=== PATIENT | male | born 1980 | race African-American/Black ===

== ENCOUNTER 2019-03-04 02:40 | Inpatient (IN) | payer MEDICAID ==
[~2019-03-04] VITALS: Ht 188 cm; Wt 86.4 kg
[2019-03-04] MEDS ORDERED: MULTIVIT INFUSN,ADULT 4,VIT K 10 ML, THIAMINE INJ 100 MG, FOLIC ACID INJ 1 MG in IV NOR... IV ONE (03:00)
[2019-03-04] MEDS ORDERED: MULTIVIT INFUSN,ADULT 4,VIT K 10 ML, THIAMINE INJ 100 MG, FOLIC ACID INJ 1 MG in IV NOR... IV SCH (03:15)
[2019-03-04 03:18] LABS: BASO % 1 % (0-3); EOS # 0.2 x10^3/uL (0.0-0.7); EOS % 5 % (0-3); HEMOGLOBIN 14.6 g/dL (13.0-17.5); LYMPH # 1.2 x10^3/uL (1.0-4.8); LYMPH % 23 % (24-48); MEAN CORPUSCULAR HEMOGLOBIN 26 pg (25-35); MEAN CORPUSCULAR HGB CONC 33 g/dL (31-37); MEAN CORPUSCULAR VOLUME 79 fL (79-100); MONO # 0.5 x10^3/uL (0.0-1.1); MONO % 9 % (0-9); NEUT # 3.2 x10^3/uL (1.8-7.7); NEUT % 63 % (31-73); PLATELET COUNT 193 x10^3/uL (140-400); RED BLOOD COUNT 5.73 x10^6/uL (4.30-5.70); RED CELL DISTRIBUTION WIDTH 15.4 % (11.5-14.5); WHITE BLOOD COUNT 5.1 x10^3/uL (4.0-11.0)
--- NOTE | 2019-03-04 03:23 | PHYS DOC ---
Past Medical History Past Medical History: Diabetes-Type I (ROSALBA LORA DO) Past Medical History Limited due to acute intoxication (ROSALBA LORA DO) Past Surgical History Limited due to acute intoxication (ROSALBA LORA DO) Smoking: Cigarettes Alcohol Use: Heavy Drug Use: Cocaine, Methamphetamine (2012), Phencyclidine (ROSALBA LORA DO) Social History Limited due to acute intoxication (ROSALBA LORA DO) Adult General Chief Complaint Chief Complaint: ALTERED MENTAL STATUS HPI HPI Mr. Meyer is a 39yo AAM w/ PMH significant for DM and polysubstance abuse presents w/ AMS. Patient states he was discharged from [facility] this evening. Reports he is homeless. Reports use of alcohol and PCP after discharge. Currently feeling confused and dizzy. Poor historian due to AMS likely secondary to self-admission of recent substance use. History of present illness limited due to acute intoxication. (ROSALBA LORA DO) Review of Systems Review of Systems Constitutional: Reports confusion and dizziness. Denies fever or chills Neurologic: Reports mild VILLAREAL. Denies focal weakness or sensory changes Review of systems limited due to acute intoxication. (ROSALBA LORA DO) Current Medications Current Medications Current Medications Medications (Trade) Dose Ordered Sig/Michael Start Time Stop Time Status Last Admin Dose Admin Magnesium Sulfate 50 ml @ 25 mls/hr 1X ONCE 03/04/19 04:45 03/04/19 06:44 DC 03/04/19 05:10 25 MLS/HR Multivitamins 10 ml/Thiamine HCl 100 mg/Folic Acid 1 mg/Sodium Chloride 1,011.2 ml @ 1,000.088 mls/hr 1X ONCE 03/04/19 03:00 03/04/19 05:06 DC 03/04/19 04:58 1,000.088 MLS/HR Sodium Chloride 1,000 ml @ 1,000 mls/hr 1X ONCE 03/04/19 09:15 03/04/19 10:14 03/04/19 09:40 1,000 MLS/HR (YUVAL SILVERMAN MD) Allergies Allergies Allergies Coded Allergies Type Severity Reaction Last Updated Verified No Known Drug Allergies 03/04/19 No (YUVAL SILVERMAN MD) Physical Exam Physical Exam Constitutional: withdrawn, no acute distress, non-toxic appearance HENT: Normocephalic, atraumatic, oropharynx moist Eyes: PERRL, EOMI, conjunctiva normal, no discharge Neck: Normal range of motion, no tenderness, supple, no cervical or supraclavicular LAD Cardiovascular: Heart rate normal, regular rhythm w/o gallops, rubs, or murmurs. Lungs & Thorax: Bilateral breath sounds clear to auscultation throughout, no wheezing Abdomen: Soft, no tenderness, non-distended Skin: Warm, dry, no erythema, no rash Extremities: No tenderness, no edema Neurologic: Alert and oriented X 3, normal motor function, normal sensory function, no focal deficits noted Psychologic: Affect flat, judgement limited, mood depressed, reports suicidal and homicidal ideation (ROSALBA LORA DO) Current Patient Data Vital Signs Vital Signs Date Time Temp Pulse Resp B/P (MAP) Pulse Ox O2 Delivery O2 Flow Rate FiO2 03/04/19 07:30 84 16 100 03/04/19 02:40 98.6 124/81 (95) Room Air 98.6 (YUVAL SILVERMAN MD) Lab Values Laboratory Tests Test 03/04/19 02:48 03/04/19 02:50 03/04/19 04:00 White Blood Count 5.1 x10^3/uL (4.0-11.0) Red Blood Count 5.73 x10^6/uL (4.30-5.70) H Hemoglobin 14.6 g/dL (13.0-17.5) Hematocrit 45.0 % (39.0-53.0) Mean Corpuscular Volume 79 fL (79-100) Mean Corpuscular Hemoglobin 26 pg (25-35) Mean Corpuscular Hemoglobin Concent 33 g/dL (31-37) Red Cell Distribution Width 15.4 % (11.5-14.5) H Platelet Count 193 x10^3/uL (140-400) Neutrophils (%) (Auto) 63 % (31-73) Lymphocytes (%) (Auto) 23 % (24-48) L Monocytes (%) (Auto) 9 % (0-9) Eosinophils (%) (Auto) 5 % (0-3) H Basophils (%) (Auto) 1 % (0-3) Neutrophils # (Auto) 3.2 x10^3/uL (1.8-7.7) Lymphocytes # (Auto) 1.2 x10^3/uL (1.0-4.8) Monocytes # (Auto) 0.5 x10^3/uL (0.0-1.1) Eosinophils # (Auto) 0.2 x10^3/uL (0.0-0.7) Basophils # (Auto) 0.0 x10^3/uL (0.0-0.2) Lactic Acid Level 1.4 mmol/L (0.4-2.0) Urine Collection Type Unknown Urine Color Yellow Urine Clarity Clear Urine pH 6.0 Urine Specific [place] >=1.030 Urine Protein Negative mg/dL (NEG-TRACE) Urine Glucose (UA) >=1000 mg/dL (NEG) Urine Ketones (Stick) 40 mg/dL (NEG) Urine Blood Negative (NEG) Urine Nitrite Negative (NEG) Urine Bilirubin Negative (NEG) Urine Urobilinogen Dipstick 1.0 mg/dL (0.2 mg/dL) Urine Leukocyte Esterase Negative (NEG) Urine RBC 0 /HPF (0-2) Urine WBC 1-4 /HPF (0-4) Urine Squamous Epithelial Cells Occ /LPF Urine Bacteria 0 /HPF (0-FEW) Urine Mucus Slight /LPF Urine Opiates Screen Neg (NEG) Urine Methadone Screen Neg (NEG) Urine Barbiturates Neg (NEG) Urine Phencyclidine Screen Pos (NEG) Urine Amphetamine/Methamphetamine Neg (NEG) Urine Benzodiazepines Screen Neg (NEG) Urine Cocaine Screen Neg (NEG) Urine Cannabinoids Screen Neg (NEG) Urine Ethyl Alcohol Neg (NEG) Sodium Level 138 mmol/L (136-145) Potassium Level 5.0 mmol/L (3.5-5.1) Chloride Level 104 mmol/L (98-107) Carbon Dioxide Level 26 mmol/L (21-32) Anion Gap 8 (6-14) Blood Urea Nitrogen 13 mg/dL (8-26) Creatinine 0.9 mg/dL (0.7-1.3) Estimated GFR (Cockcroft-Gault) 114.9 BUN/Creatinine Ratio 14 (6-20) Glucose Level 278 mg/dL (70-99) H Calcium Level 8.7 mg/dL (8.5-10.1) Magnesium Level 1.5 mg/dL (1.8-2.4) L Total Bilirubin 0.5 mg/dL (0.2-1.0) Aspartate Amino Transferase (AST) 29 U/L (15-37) Alanine Aminotransferase (ALT) 22 U/L (16-63) Alkaline Phosphatase 88 U/L (46-116) Total Protein 6.9 g/dL (6.4-8.2) Albumin 3.0 g/dL (3.4-5.0) L Albumin/Globulin Ratio 0.8 (1.0-1.7) L Lipase 83 U/L (73-393) Salicylates Level 3.9 mg/dL (2.8-20.0) Salicylate Last Dose Date Salicylate Last Dose Time Acetaminophen Level < 2 mcg/ml (10-30) L Acetaminophen Last Dose Date Acetaminophen Last Dose Time Ethyl Alcohol Level < 10 mg/dL (0-10) Laboratory Tests 03/04/19 02:48 Laboratory Tests 03/04/19 04:00 (YUVAL SILVERMAN MD) Lab Values Laboratory Tests Test 03/04/19 02:48 03/04/19 02:50 03/04/19 04:00 White Blood Count 5.1 x10^3/uL (4.0-11.0) Red Blood Count 5.73 x10^6/uL (4.30-5.70) H Hemoglobin 14.6 g/dL (13.0-17.5) Hematocrit 45.0 % (39.0-53.0) Mean Corpuscular Volume 79 fL (79-100) Mean Corpuscular Hemoglobin 26 pg (25-35) Mean Corpuscular Hemoglobin Concent 33 g/dL (31-37) Red Cell Distribution Width 15.4 % (11.5-14.5) H Platelet Count 193 x10^3/uL (140-400) Neutrophils (%) (Auto) 63 % (31-73) Lymphocytes (%) (Auto) 23 % (24-48) L Monocytes (%) (Auto) 9 % (0-9) Eosinophils (%) (Auto) 5 % (0-3) H Basophils (%) (Auto) 1 % (0-3) Neutrophils # (Auto) 3.2 x10^3/uL (1.8-7.7) Lymphocytes # (Auto) 1.2 x10^3/uL (1.0-4.8) Monocytes # (Auto) 0.5 x10^3/uL (0.0-1.1) Eosinophils # (Auto) 0.2 x10^3/uL (0.0-0.7) Basophils # (Auto) 0.0 x10^3/uL (0.0-0.2) Lactic Acid Level 1.4 mmol/L (0.4-2.0) Urine Collection Type Unknown Urine Color Yellow Urine Clarity Clear Urine pH 6.0 Urine Specific [place] >=1.030 Urine Protein Negative mg/dL (NEG-TRACE) Urine Glucose (UA) >=1000 mg/dL (NEG) Urine Ketones (Stick) 40 mg/dL (NEG) Urine Blood Negative (NEG) Urine Nitrite Negative (NEG) Urine Bilirubin Negative (NEG) Urine Urobilinogen Dipstick 1.0 mg/dL (0.2 mg/dL) Urine Leukocyte Esterase Negative (NEG) Urine RBC 0 /HPF (0-2) Urine WBC 1-4 /HPF (0-4) Urine Squamous Epithelial Cells Occ /LPF Urine Bacteria 0 /HPF (0-FEW) Urine Mucus Slight /LPF Urine Opiates Screen Neg (NEG) Urine Methadone Screen Neg (NEG) Urine Barbiturates Neg (NEG) Urine Phencyclidine Screen Pos (NEG) Urine Amphetamine/Methamphetamine Neg (NEG) Urine Benzodiazepines Screen Neg (NEG) Urine Cocaine Screen Neg (NEG) Urine Cannabinoids Screen Neg (NEG) Urine Ethyl Alcohol Neg (NEG) Sodium Level 138 mmol/L (136-145) Potassium Level 5.0 mmol/L (3.5-5.1) Chloride Level 104 mmol/L (98-107) Carbon Dioxide Level 26 mmol/L (21-32) Anion Gap 8 (6-14) Blood Urea Nitrogen 13 mg/dL (8-26) Creatinine 0.9 mg/dL (0.7-1.3) Estimated GFR (Cockcroft-Gault) 114.9 BUN/Creatinine Ratio 14 (6-20) Glucose Level 278 mg/dL (70-99) H Calcium Level 8.7 mg/dL (8.5-10.1) Magnesium Level 1.5 mg/dL (1.8-2.4) L Total Bilirubin 0.5 mg/dL (0.2-1.0) Aspartate Amino Transferase (AST) 29 U/L (15-37) Alanine Aminotransferase (ALT) 22 U/L (16-63) Alkaline Phosphatase 88 U/L (46-116) Total Protein 6.9 g/dL (6.4-8.2) Albumin 3.0 g/dL (3.4-5.0) L Albumin/Globulin Ratio 0.8 (1.0-1.7) L Lipase 83 U/L (73-393) Ethyl Alcohol Level < 10 mg/dL (0-10) Laboratory Tests 03/04/19 02:48 Laboratory Tests 03/04/19 04:00 (ROSALBA LORA DO) EKG EKG @0325 NSR at 71bpm, NO ST elevation, QRS 82ms, QT/QTc 398/433ms (ROSALBA LORA DO) Radiology/Procedures Radiology/Procedures [] (ROSALBA LORA DO) Course & Med Decision Making Course & Med Decision Making Pertinent Lab studies reviewed. (See chart for details) Patient presented w/ AMS with report of drinking ETOH and using PCP. Patient appears acutely intoxicated. Hx of recent visit to [facility]. Patient poor historian. Labs obtained and posted to chart. ETOH negative. PCP positive. Magnesium slightly decreased. Magnesium replacement provided. EKG stable. Banana bag provided. IVF hydration also provided. 0430- Patient still obtunded. Await clinical sobriety for PAT consultation. 0600- PAT consult placed. Sign out given to Dr. Silverman for further evaluation and final disposition. Discussed current findings and plan with patient, who ac knowledges understanding and agreement. (ROSALBA LORA DO) Course & Med Decision Making 1005: Patient was a sleeping but was able to walk to the bathroom and eat wit hout problem. Patient was evaluated by Pat team staff and mentioned he has ideal to kill his without mentioning about his plan. Patient give inappropriate comments to the female staff internal investigator and then refused to talk to the male Pat team internal investigator. Patient was in emergency room more than 7 hours and refused to talk to me and other staff Dr. Cheney auto inspection specialist hospitalist was informed and willing to admit patient for observation. (YUVAL SILVERMAN MD) Dragon Disclaimer Dragon Disclaimer This electronic medical record was generated, in whole or in part, using a voice recognition dictation system. (ROSALBA LORA DO) Departure Departure Impression: Primary Impression: PCP abuse Additional Impression: Hypomagnesemia Disposition: ADMITTED INPATIENT (at 1002) Admitting Physician: [facility] (Dr. Cheney accepted admission at 1001) (YUVAL SILVERMAN MD) Problem Qualifiers ROSALBA LORA DO Mar 04, 2019 03:23 YUVAL SILVERMAN MD Mar 04, 2019 10:12
[2019-03-04 03:27] LABS: BILIRUBIN,URINE NEGATIVE (NEG); CLARITY,URINE CLEAR; COLOR,URINE YELLOW; NITRITE,URINE NEGATIVE (NEG); PROTEIN,URINE NEGATIVE (NEG-TRACE)
[2019-03-04 03:33] LABS: BACTERIA,URINE 0 /HPF (0-FEW); BARBITURATES NEG (NEG); BENZODIAZEPINES NEG (NEG); CANNABINOIDS NEG (NEG); COCAINE NEG (NEG); METHADONE NEG (NEG); OPIATES NEG (NEG); PHENCYCLIDINE POS (NEG); RBC,URINE 0 /HPF (0-2); SQUAMOUS EPITHELIAL CELL,UR OCC /LPF
[2019-03-04 03:36] LABS: AMPHETAMINE/METHAMPHETAMINE NEG (NEG)
[2019-03-04 04:22] LABS: CALCIUM 8.7 mg/dL (8.5-10.1); CREATININE 0.9 mg/dL (0.7-1.3); GFR 114.9
[2019-03-04 04:27] LABS: ALBUMIN/GLOBULIN RATIO 0.8 (1.0-1.7); MAGNESIUM 1.5 mg/dL (1.8-2.4); TOTAL BILIRUBIN 0.5 mg/dL (0.2-1.0); TOTAL PROTEIN 6.9 g/dL (6.4-8.2)
[2019-03-04] MEDS ORDERED: IV NORMAL SALINE 1000ML BAG 1,000 ML IV ONE ×2 (04:45→09:15)
[2019-03-04] MEDS ORDERED: MAGNESIUM SULFATE 2GM 50 ML IV ONE (04:45)
[2019-03-04 04:49] LABS: ACETAMIN < 2 mcg/ml (10-30); SALIC 3.9 mg/dL (2.8-20.0)
--- NOTE | 2019-03-04 06:22 | EKG ---
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
--- NOTE | 2019-03-04 11:30 | PDOC1 ---
History and Physical Date of Admission Date of Admission DATE: 03/04/19 TIME: 11:29 Identification/Chief Complaint Chief Complaint 39yo AAM w/ PMH significant for DM and polysubstance abuse presents w/ AMS. Patient states he was discharged from [facility] 03/03. Reports he is homeless. Reports use of alcohol and PCP after discharge. Currently feeling confused and dizzy. C/O STRESS WITH GIRLFRIEND, CAUSING MORE DRUG USE Poor historian due to AMS likely secondary to self-admission of recent substance use. HAS POSSIBLE SPIDER BITE RIGHT LOWER LEG, MILD INFLAMMATION Past Medical History Past Medical History Past Medical History: Diabetes-Type I Smoking: Cigarettes Alcohol Use: Heavy Drug Use: Cocaine, Methamphetamine (2012), Phencyclidine fhx htn Family History Family History: Hypertension Social History Smoke: <1 pack per day ALCOHOL: heavy Drugs: Other (pcp) Current Problem List Problem List Problems Medical Problems: (1) Alcohol abuse Status: Acute (2) Hypomagnesemia Status: Acute (3) PCP abuse Status: Acute Current Medications Current Medications Current Medications Multivitamins 10 ml/Thiamine HCl 100 mg/Folic Acid 1 mg/Sodium Chloride 1,011.2 ml @ 1,000 mls/ hr Q1H IV ; Start 03/04/19 at 03:15; Status Cancel Sodium Chloride 1,000 ml @ 1,000 mls/hr 1X ONCE IV Last administered on 03/04/19at 05:10; Start 03/04/19 at 04:45; Stop 03/04/19 at 05:44; Status DC Magnesium Sulfate 50 ml @ 25 mls/hr 1X ONCE IV Last administered on 03/04/19at 05:10; Start 03/04/19 at 04:45; Stop 03/04/19 at 06:44; Status DC Multivitamins 10 ml/Thiamine HCl 100 mg/Folic Acid 1 mg/Sodium Chloride 1,011.2 ml @ 1,000.088 mls/hr 1X ONCE IV Last administered on 03/04/19at 04:58; Start 03/04/19 at 03:00; Stop 03/04/19 at 05:06; Status DC Sodium Chloride 1,000 ml @ 1,000 mls/hr 1X ONCE IV Last administered on 03/04/19at 09:40; Start 03/04/19 at 09:15; Stop 8/9/19 at 10:14; Status DC Allergies Allergies: Coded Allergies: No Known Drug Allergies (Unverified , 03/04/19) ROS Review of System Review of Systems Review of Systems Constitutional: Reports confusion and dizziness. Denies fever or chills Neurologic: Reports mild VILLAREAL. Denies focal weakness or sensory changes Review of systems limited due to acute intoxication. General: YES: Fatigue PSYCHOLOGICAL ROS: YES: Irritablity Eyes: No Blurry vision, No Decreased vision, No Double vision, No Dry eyes, No Excessive tearing, No Eye Pain, No Itchy Eyes, No Loss of vision, No Photophobia, No Scotomata, No Uses contacts, No Uses glasses, No Other HEENT: No: Heacaches, Visual Changes, Hearing change, Nasal congestion, Nasal discharge, Oral lesions, Sinus pain, Sore Throat, Epistaxis, Sneezing, Snoring, Tinnitus, Vertigo, Vocal changes, Other ALLERGY AND IMMUNOLOGY: No: Hives, Insect Bite Sensitivity, Itchy/Watery Eyes, Nasal Congestion, Post Nasal Drip, Seasonal Allergies, Other ENDOCRINE: No: Breast Changes, Galactorrhea, Hair Pattern Changes, Hot Flashes, Malaise/lethargy, Mood Swings, Palpitations, Polydipsia/polyuria, Skin Changes, Temperature Intolerance, Unexpected Weight Changes, Other Respiratory: No: Cough, Hemoptysis, Orthopnea, Pleuritic Pain, Shortness of breath, SOB with excertion, Sputum Changes, Stridor, Tachypnea, Wheezing, Other Cardiovascular: No Chest Pain, No Palpitations, No Orthopnea, No Paroxysmal Noc. Dyspnea, No Edema, No Lt Headedness, No Other Gastrointestinal: No Nausea, No Vomiting, No Abdominal Pain, No Diarrhea, No Constipation, No Melena, No Hematochezia, No Other Skin: Yes Skin Lesion Changes Physical Exam Physical Exam Physical Exam Physical Exam Constitutional: withdrawn, no acute distress, non-toxic appearance HENT: Normocephalic, atraumatic, oropharynx moist Eyes: PERRL, EOMI, conjunctiva normal, no discharge Neck: Normal range of motion, no tenderness, supple, no cervical or supraclavicular LAD Cardiovascular: Heart rate normal, regular rhythm w/o gallops, rubs, or murmurs. Lungs & Thorax: Bilateral breath sounds clear to auscultation throughout, no wheezing Abdomen: Soft, no tenderness, non-distended Skin: Warm, dry, no erythema, no rash Extremities: No tenderness, no edema Neurologic: Alert and oriented X 3, normal motor function, normal sensory function, no focal deficits noted Psychologic: Affect flat, judgement limited, mood depressed, reports suicidal and homicidal ideation General: Alert, Oriented X3, Cooperative HEENT: Atraumatic, PERRLA Lungs: Clear to auscultation Heart: RRR Abdomen: Normal bowel sounds, Soft Rectal Exam: not examined Extremities: No cyanosis Neuro: Normal speech, Cranial nerves 3-12 NL Psych/Mental Status: Other (MOOD FLAT) Vitals Vitals Vital Signs Date Time Temp Pulse Resp B/P (MAP) Pulse Ox O2 Delivery O2 Flow Rate FiO2 03/04/19 11:18 80 15 100 03/04/19 02:40 98.6 124/81 (95) Room Air 98.6 Labs Labs Laboratory Tests Test 03/04/19 02:48 03/04/19 02:50 03/04/19 04:00 White Blood Count 5.1 x10^3/uL (4.0-11.0) Red Blood Count 5.73 x10^6/uL (4.30-5.70) Hemoglobin 14.6 g/dL (13.0-17.5) Hematocrit 45.0 % (39.0-53.0) Mean Corpuscular Volume 79 fL (79-100) Mean Corpuscular Hemoglobin 26 pg (25-35) Mean Corpuscular Hemoglobin Concent 33 g/dL (31-37) Red Cell Distribution Width 15.4 % (11.5-14.5) Platelet Count 193 x10^3/uL (140-400) Neutrophils (%) (Auto) 63 % (31-73) Lymphocytes (%) (Auto) 23 % (24-48) Monocytes (%) (Auto) 9 % (0-9) Eosinophils (%) (Auto) 5 % (0-3) Basophils (%) (Auto) 1 % (0-3) Neutrophils # (Auto) 3.2 x10^3/uL (1.8-7.7) Lymphocytes # (Auto) 1.2 x10^3/uL (1.0-4.8) Monocytes # (Auto) 0.5 x10^3/uL (0.0-1.1) Eosinophils # (Auto) 0.2 x10^3/uL (0.0-0.7) Basophils # (Auto) 0.0 x10^3/uL (0.0-0.2) Lactic Acid Level 1.4 mmol/L (0.4-2.0) Urine Collection Type Unknown Urine Color Yellow Urine Clarity Clear Urine pH 6.0 Urine Specific [place] >=1.030 Urine Protein Negative mg/dL (NEG-TRACE) Urine Glucose (UA) >=1000 mg/dL (NEG) Urine Ketones (Stick) 40 mg/dL (NEG) Urine Blood Negative (NEG) Urine Nitrite Negative (NEG) Urine Bilirubin Negative (NEG) Urine Urobilinogen Dipstick 1.0 mg/dL (0.2 mg/dL) Urine Leukocyte Esterase Negative (NEG) Urine RBC 0 /HPF (0-2) Urine WBC 1-4 /HPF (0-4) Urine Squamous Epithelial Cells Occ /LPF Urine Bacteria 0 /HPF (0-FEW) Urine Mucus Slight /LPF Urine Opiates Screen Neg (NEG) Urine Methadone Screen Neg (NEG) Urine Barbiturates Neg (NEG) Urine Phencyclidine Screen Pos (NEG) Urine Amphetamine/Methamphetamine Neg (NEG) Urine Benzodiazepines Screen Neg (NEG) Urine Cocaine Screen Neg (NEG) Urine Cannabinoids Screen Neg (NEG) Urine Ethyl Alcohol Neg (NEG) Sodium Level 138 mmol/L (136-145) Potassium Level 5.0 mmol/L (3.5-5.1) Chloride Level 104 mmol/L (98-107) Carbon Dioxide Level 26 mmol/L (21-32) Anion Gap 8 (6-14) Blood Urea Nitrogen 13 mg/dL (8-26) Creatinine 0.9 mg/dL (0.7-1.3) Estimated GFR (Cockcroft-Gault) 114.9 BUN/Creatinine Ratio 14 (6-20) Glucose Level 278 mg/dL (70-99) Calcium Level 8.7 mg/dL (8.5-10.1) Magnesium Level 1.5 mg/dL (1.8-2.4) Total Bilirubin 0.5 mg/dL (0.2-1.0) Aspartate Amino Transf (AST/SGOT) 29 U/L (15-37) Alanine Aminotransferase (ALT/SGPT) 22 U/L (16-63) Alkaline Phosphatase 88 U/L (46-116) Total Protein 6.9 g/dL (6.4-8.2) Albumin 3.0 g/dL (3.4-5.0) Albumin/Globulin Ratio 0.8 (1.0-1.7) Lipase 83 U/L (73-393) Salicylates Level 3.9 mg/dL (2.8-20.0) Salicylate Last Dose Date Salicylate Last Dose Time Acetaminophen Level < 2 mcg/ml (10-30) Acetaminophen Last Dose Date Acetaminophen Last Dose Time Ethyl Alcohol Level < 10 mg/dL (0-10) Laboratory Tests Test 03/04/19 02:48 03/04/19 02:50 03/04/19 04:00 White Blood Count 5.1 x10^3/uL (4.0-11.0) Red Blood Count 5.73 x10^6/uL (4.30-5.70) Hemoglobin 14.6 g/dL (13.0-17.5) Hematocrit 45.0 % (39.0-53.0) Mean Corpuscular Volume 79 fL (79-100) Mean Corpuscular Hemoglobin 26 pg (25-35) Mean Corpuscular Hemoglobin Concent 33 g/dL (31-37) Red Cell Distribution Width 15.4 % (11.5-14.5) Platelet Count 193 x10^3/uL (140-400) Neutrophils (%) (Auto) 63 % (31-73) Lymphocytes (%) (Auto) 23 % (24-48) Monocytes (%) (Auto) 9 % (0-9) Eosinophils (%) (Auto) 5 % (0-3) Basophils (%) (Auto) 1 % (0-3) Neutrophils # (Auto) 3.2 x10^3/uL (1.8-7.7) Lymphocytes # (Auto) 1.2 x10^3/uL (1.0-4.8) Monocytes # (Auto) 0.5 x10^3/uL (0.0-1.1) Eosinophils # (Auto) 0.2 x10^3/uL (0.0-0.7) Basophils # (Auto) 0.0 x10^3/uL (0.0-0.2) Lactic Acid Level 1.4 mmol/L (0.4-2.0) Urine Collection Type Unknown Urine Color Yellow Urine Clarity Clear Urine pH 6.0 Urine Specific [place] >=1.030 Urine Protein Negative mg/dL (NEG-TRACE) Urine Glucose (UA) >=1000 mg/dL (NEG) Urine Ketones (Stick) 40 mg/dL (NEG) Urine Blood Negative (NEG) Urine Nitrite Negative (NEG) Urine Bilirubin Negative (NEG) Urine Urobilinogen Dipstick 1.0 mg/dL (0.2 mg/dL) Urine Leukocyte Esterase Negative (NEG) Urine RBC 0 /HPF (0-2) Urine WBC 1-4 /HPF (0-4) Urine Squamous Epithelial Cells Occ /LPF Urine Bacteria 0 /HPF (0-FEW) Urine Mucus Slight /LPF Urine Opiates Screen Neg (NEG) Urine Methadone Screen Neg (NEG) Urine Barbiturates Neg (NEG) Urine Phencyclidine Screen Pos (NEG) Urine Amphetamine/Methamphetamine Neg (NEG) Urine Benzodiazepines Screen Neg (NEG) Urine Cocaine Screen Neg (NEG) Urine Cannabinoids Screen Neg (NEG) Urine Ethyl Alcohol Neg (NEG) Sodium Level 138 mmol/L (136-145) Potassium Level 5.0 mmol/L (3.5-5.1) Chloride Level 104 mmol/L (98-107) Carbon Dioxide Level 26 mmol/L (21-32) Anion Gap 8 (6-14) Blood Urea Nitrogen 13 mg/dL (8-26) Creatinine 0.9 mg/dL (0.7-1.3) Estimated GFR (Cockcroft-Gault) 114.9 BUN/Creatinine Ratio 14 (6-20) Glucose Level 278 mg/dL (70-99) Calcium Level 8.7 mg/dL (8.5-10.1) Magnesium Level 1.5 mg/dL (1.8-2.4) Total Bilirubin 0.5 mg/dL (0.2-1.0) Aspartate Amino Transf (AST/SGOT) 29 U/L (15-37) Alanine Aminotransferase (ALT/SGPT) 22 U/L (16-63) Alkaline Phosphatase 88 U/L (46-116) Total Protein 6.9 g/dL (6.4-8.2) Albumin 3.0 g/dL (3.4-5.0) Albumin/Globulin Ratio 0.8 (1.0-1.7) Lipase 83 U/L (73-393) Salicylates Level 3.9 mg/dL (2.8-20.0) Salicylate Last Dose Date Salicylate Last Dose Time Acetaminophen Level < 2 mcg/ml (10-30) Acetaminophen Last Dose Date Acetaminophen Last Dose Time Ethyl Alcohol Level < 10 mg/dL (0-10) VTE Prophylaxis Ordered VTE Prophylaxis Devices: Contraindicated VTE Pharmacological Prophylaxi: Yes Assessment/Plan Assessment/Plan Impression: PCP abuse Hypomagnesemia obesity polysubstance abuse SUICIDE IDEATION, MAJOR DEPRESSION HOMELESS social issues ADMITTED PAT TEAM CONSULT SUICIDE PRECAUTIONS KEFLEX 500MG PO QID suicide precautions 77 MIN PT EXAM, CHART REVIEW, > 50% OF TIME SPENT WITH EXAM, CHART REVIEW, PT CARE COORDINATION BERRY ROA MD Mar 04, 2019 11:30
[2019-03-04 11:48] VITALS: BP 129/84
[2019-03-04] MEDS ORDERED: FLUO40CA9 PO (12:00)
[2019-03-04] MEDS ORDERED: ALBU2.5V8 IH (12:00)
[2019-03-04] MEDS ORDERED: LISI10TA2 PO (12:00)
[2019-03-04] MEDS ORDERED: OLAN20TA3 PO (12:00)
[2019-03-04] MEDS ORDERED: TRAZ150T49 PO (12:00)
[2019-03-04] MEDS ORDERED: METF10007 PO (12:00)
[2019-03-04] MEDS ORDERED: GLIP10TA13 PO (12:00)
[2019-03-04] MEDS ORDERED: ALBUTEROL SULFATE 2.5 MG/3 ML NEBU. NEB PRN (13:30)
--- NOTE | 2019-03-04 13:33 | HP ---
ADMIT DATE: 03/04/2019 CHIEF COMPLAINT: Suicidal ideation, homicidal ideation, PCP abuse. HISTORY OF PRESENT ILLNESS: The patient is a pleasant middle-aged male who has schizophrenia and diabetes. He apparently has been having some suicidal ideation. He told someone that he was going to hurt his as well. He apparently took some PCP within the past few days. He is also methamphetamine and cocaine in the past. I discussed the case with ER physician. We are going to admit the patient and consult the psychiatric assessment team. I just talked to Kieran who works for the psychiatric assessment team. He is going to try to get the patient place but it is going to take a couple of days. PAST MEDICAL HISTORY: Diabetes and schizophrenia. ALLERGIES: None. FAMILY HISTORY: Hypertension. SOCIAL HISTORY: He smokes socially, drinks socially. He takes PCP, methamphetamine and cocaine recreationally, states he did some PCP within the past day or two. MEDICATIONS: Reviewed, please refer to MRAD. REVIEW OF SYSTEMS: Unobtainable, the patient will not comply. He is confused. PHYSICAL EXAMINATION: VITALS: Within normal limits and are stable. GENERAL: No apparent distress. Alert and oriented. HEENT: Head is normocephalic, atraumatic, pupils were equally round and reactive to light and accommodation. NECK: Supple, no JVD, no thyromegaly was noted. LUNGS: Clear to auscultation in all lung reid without rhonchi or wheezing. HEART: RRR, S1, S2 present. Peripheral pulses intact, no obvious murmurs were noted. ABDOMEN: Soft, nontender. Positive bowel sounds no organomegaly, normal bowel sounds. EXTREMITIES: Without any cyanosis, clubbing, or edema. Pedal pulses intact, Homans sign is negative. NEUROLOGIC: Normal speech, normal tone. A & O x3, moves all extremities, no obvious focal deficits. PSYCHIATRIC: Normal affect, normal mood. Stable. SKIN: No ulcerations or rashes, good skin turgor, no jaundice. VASCULAR: Good capillary refill, neurovascular bundle appears to be intact. LABORATORY DATA: White count is 5. Drug screen positive for PCP. ASSESSMENT AND PLAN: Drug abuse, suicidal and homicidal ideation. The patient is being admitted. We will consult the psychiatric assessment team, home meds, 1:1 observation, cardiac monitoring. NICHOLE RAMEY DO DR: Michelle JOB#: [id number] / [id number]
[2019-03-04] MEDS ORDERED: IV DEXTROSE 5% 250 ML BAG. IV PRN (13:45)
[2019-03-04] MEDS ORDERED: DEXTROSE 50% 25 GM / 50ML DISP.SYRIN. IV PRN (13:45)
[2019-03-04 14:57] VITALS: BP 113/69
[2019-03-04] MEDS: FLUoxetine HCL 20 MG CAPSULE PO SCH (15:08)
[2019-03-04] MEDS: LISINOPRIL 10 MG TABLET PO SCH (15:08)
[2019-03-04] MEDS: glipiZIDE 5 MG TABLET PO SCH (17:47)
[2019-03-04] MEDS: CEPHALEXIN 250 MG CAPSULE. PO SCH ×2 (17:47→20:17)
[2019-03-04] MEDS: ENOXAPARIN 40 MG/0.4 ML SYRINGE. SQ SCH (17:48)
[2019-03-04] MEDS: INSULIN LISPRO 300 UNITS/3 ML INSULN.PEN. SQ SCH (17:53)
--- NOTE | 2019-03-04 18:33 | NUR ---
DR. ROA NOTIFIED OF BLOOD SUGAR [address] ROA INFORMED THAT THIS IS THE FIRST TIME TREATING THE BLOOD SUGAR WITH 5 UNITS OF INSULIN AND PT PO DM MEDICATIONS. DR. ROA DID NOT WANT TO ADD MORE TREATMENT AND TO RE-CHECK IN 1 HOUR.
[2019-03-04 19:00] VITALS: BP 155/96
[2019-03-04] MEDS: LACTOBACILLUS RHAMNOSUS GG 1 CAPSULE. PO SCH (20:17)
[2019-03-04] MEDS: traZODone 50 MG TABLET. PO SCH (20:17)
[2019-03-04] MEDS: OLANZapine 5 MG TABLET PO SCH (20:17)
[2019-03-04 22:52] VITALS: BP 132/73
[2019-03-05] MEDS: FAMOTIDINE 20 MG TABLET. PO SCH ×3 (01:00→20:17)
--- NOTE | 2019-03-05 01:29 | NUR ---
Patient continues to be inappropriate to female staff members during this time. Patient was laying in bed with his penis exposed and asked the TRAVEL OCCUPATIONAL THERAPIST sitting with him for her hand, when the TRAVEL OCCUPATIONAL THERAPIST asked why he stated "I want you to jerk me off". TRAVEL OCCUPATIONAL THERAPIST told the patient that it was inappropriate, and notified this RN. At this time the patient stood up for his bed and approached this RN, the patient then came closer and began to bend down towards this RN's face. This RN placed a hand on the patient's chest to stop the patient from advancing closer. This RN told the patient "please don't stand that close to me". The patient then stepped back and went back to bed and laid down. This RN called and spoke to the nursing supervisor coil winding and requested a male staff member to sit with the patient at this time. This RN will continue to monitor the patient's condition at this time.
[2019-03-05 03:21] VITALS: BP 128/76
[2019-03-05 07:53] VITALS: BP 98/70
[2019-03-05] MEDS: glipiZIDE 5 MG TABLET PO SCH ×2 (08:08→17:10)
[2019-03-05] MEDS: FLUoxetine HCL 20 MG CAPSULE PO SCH (08:08)
[2019-03-05] MEDS: CEPHALEXIN 250 MG CAPSULE. PO SCH ×4 (08:08→20:17)
[2019-03-05] MEDS: LACTOBACILLUS RHAMNOSUS GG 1 CAPSULE. PO SCH ×2 (08:08→20:17)
[2019-03-05] MEDS: INSULIN LISPRO 300 UNITS/3 ML INSULN.PEN. SQ SCH ×3 (08:15→17:13)
[2019-03-05] MEDS: LISINOPRIL 10 MG TABLET PO SCH (09:00)
--- NOTE | 2019-03-05 09:16 | PDOC ---
PROGRESS NOTES Chief Complaint Chief Complaint PCP abuse Hypomagnesemia DM2 obesity polysubstance abuse SUICIDE IDEATION, MAJOR DEPRESSION HOMELESS social issues History of Present Illness History of Present Illness 39yo AAM w/ PMH significant for DM2 and polysubstance abuse presents w/ AMS. Patient states he was discharged from [facility] 03/03. Positive for PCP this admit. Mag level 1.5. Blood glucose in the 300s. He has told staff he still wishes to kill himself and his ex-. He is not speaking with me today. Allows my physical examination, but he just goes to eat his lunch. No complaints out loud. Vitals Vitals Vital Signs Date Time Temp Pulse Resp B/P (MAP) Pulse Ox O2 Delivery O2 Flow Rate FiO2 03/05/19 07:53 98.0 60 18 98/70 (79) 99 Room Air 98.0 Physical Exam General: Alert, Oriented X3, Cooperative Abdomen: Normal bowel sounds, Soft Extremities: No cyanosis Labs LABS Laboratory Tests Test 03/04/19 11:36 03/04/19 17:43 03/04/19 19:14 Glucose (Fingerstick) 301 mg/dL (70-99) 444 mg/dL (70-99) 221 mg/dL (70-99) Assessment and Plan Assessmemt and Plan Problems Medical Problems: (1) Alcohol abuse Status: Acute (2) Hypomagnesemia Status: Acute (3) PCP abuse Status: Acute Comment Review of Relevant I have reviewed the following items becki (where applicable) has been applied. Labs Laboratory Tests Test 03/04/19 02:48 03/04/19 02:50 03/04/19 04:00 03/04/19 11:36 White Blood Count 5.1 x10^3/uL (4.0-11.0) Red Blood Count 5.73 x10^6/uL (4.30-5.70) Hemoglobin 14.6 g/dL (13.0-17.5) Hematocrit 45.0 % (39.0-53.0) Mean Corpuscular Volume 79 fL (79-100) Mean Corpuscular Hemoglobin 26 pg (25-35) Mean Corpuscular Hemoglobin Concent 33 g/dL (31-37) Red Cell Distribution Width 15.4 % (11.5-14.5) Platelet Count 193 x10^3/uL (140-400) Neutrophils (%) (Auto) 63 % (31-73) Lymphocytes (%) (Auto) 23 % (24-48) Monocytes (%) (Auto) 9 % (0-9) Eosinophils (%) (Auto) 5 % (0-3) Basophils (%) (Auto) 1 % (0-3) Neutrophils # (Auto) 3.2 x10^3/uL (1.8-7.7) Lymphocytes # (Auto) 1.2 x10^3/uL (1.0-4.8) Monocytes # (Auto) 0.5 x10^3/uL (0.0-1.1) Eosinophils # (Auto) 0.2 x10^3/uL (0.0-0.7) Basophils # (Auto) 0.0 x10^3/uL (0.0-0.2) Lactic Acid Level 1.4 mmol/L (0.4-2.0) Urine Collection Type Unknown Urine Color Yellow Urine Clarity Clear Urine pH 6.0 Urine Specific [place] >=1.030 Urine Protein Negative mg/dL (NEG-TRACE) Urine Glucose (UA) >=1000 mg/dL (NEG) Urine Ketones (Stick) 40 mg/dL (NEG) Urine Blood Negative (NEG) Urine Nitrite Negative (NEG) Urine Bilirubin Negative (NEG) Urine Urobilinogen Dipstick 1.0 mg/dL (0.2 mg/dL) Urine Leukocyte Esterase Negative (NEG) Urine RBC 0 /HPF (0-2) Urine WBC 1-4 /HPF (0-4) Urine Squamous Epithelial Cells Occ /LPF Urine Bacteria 0 /HPF (0-FEW) Urine Mucus Slight /LPF Urine Opiates Screen Neg (NEG) Urine Methadone Screen Neg (NEG) Urine Barbiturates Neg (NEG) Urine Phencyclidine Screen Pos (NEG) Urine Amphetamine/Methamphetamine Neg (NEG) Urine Benzodiazepines Screen Neg (NEG) Urine Cocaine Screen Neg (NEG) Urine Cannabinoids Screen Neg (NEG) Urine Ethyl Alcohol Neg (NEG) Sodium Level 138 mmol/L (136-145) Potassium Level 5.0 mmol/L (3.5-5.1) Chloride Level 104 mmol/L (98-107) Carbon Dioxide Level 26 mmol/L (21-32) Anion Gap 8 (6-14) Blood Urea Nitrogen 13 mg/dL (8-26) Creatinine 0.9 mg/dL (0.7-1.3) Estimated GFR (Cockcroft-Gault) 114.9 BUN/Creatinine Ratio 14 (6-20) Glucose Level 278 mg/dL (70-99) Calcium Level 8.7 mg/dL (8.5-10.1) Magnesium Level 1.5 mg/dL (1.8-2.4) Total Bilirubin 0.5 mg/dL (0.2-1.0) Aspartate Amino Transf (AST/SGOT) 29 U/L (15-37) Alanine Aminotransferase (ALT/SGPT) 22 U/L (16-63) Alkaline Phosphatase 88 U/L (46-116) Total Protein 6.9 g/dL (6.4-8.2) Albumin 3.0 g/dL (3.4-5.0) Albumin/Globulin Ratio 0.8 (1.0-1.7) Lipase 83 U/L (73-393) Salicylates Level 3.9 mg/dL (2.8-20.0) Salicylate Last Dose Date Salicylate Last Dose Time Acetaminophen Level < 2 mcg/ml (10-30) Acetaminophen Last Dose Date Acetaminophen Last Dose Time Ethyl Alcohol Level < 10 mg/dL (0-10) Glucose (Fingerstick) 301 mg/dL (70-99) Test 03/04/19 17:43 03/04/19 19:14 Glucose (Fingerstick) 444 mg/dL (70-99) 221 mg/dL (70-99) Laboratory Tests Test 03/04/19 11:36 03/04/19 17:43 03/04/19 19:14 Glucose (Fingerstick) 301 mg/dL (70-99) 444 mg/dL (70-99) 221 mg/dL (70-99) Medications Current Medications Multivitamins 10 ml/Thiamine HCl 100 mg/Folic Acid 1 mg/Sodium Chloride 1,011.2 ml @ 1,000 mls/ hr Q1H IV ; Start 03/04/19 at 03:15; Status Cancel Sodium Chloride 1,000 ml @ 1,000 mls/hr 1X ONCE IV Last administered on at 05:10; Start 03/04/19 at 04:45; Stop 03/04/19 at 05:44; Status DC Magnesium Sulfate 50 ml @ 25 mls/hr 1X ONCE IV Last administered on 03/04/19at 05:10; Start 03/04/19 at 04:45; Stop 03/04/19 at 06:44; Status DC Multivitamins 10 ml/Thiamine HCl 100 mg/Folic Acid 1 mg/Sodium Chloride 1,011.2 ml @ 1,000.088 mls/hr 1X ONCE IV Last administered on 03/04/19at 04:58; Start 03/04/19 at 03:00; Stop 03/04/19 at 05:06; Status DC Sodium Chloride 1,000 ml @ 1,000 mls/hr 1X ONCE IV Last administered on 03/04/19at 09:40; Start 03/04/19 at 09:15; Stop 03/04/19 at 10:14; Status DC Albuterol Sulfate (Ventolin Neb Soln) 2.5 mg PRN Q4HRS PRN NEB FOR ASTHMA; Start 03/04/19 at 13:30 Lisinopril (Prinivil) 10 mg DAILY PO Last administered on 03/04/19at 15:08; Start 03/04/19 at 14:00 Fluoxetine HCl (PROzac) 40 mg DAILY PO Last administered on 03/05/19at 08:15; Start 03/04/19 at 14:00 Glipizide (Glucotrol) 10 mg BIDBFRMEAL PO Last administered on 03/05/19 08:15; Start 03/04/19 at 16:30 Olanzapine (ZyPREXA) 20 mg QHS PO Last administered on 03/04/19 20:22; Start 03/04/19 at 21:00 Trazodone HCl (Desyrel) 150 mg QHS PO Last administered on 03/04/19 20:22; S tart 03/04/19 at 21:00 Insulin Human Lispro (HumaLOG) 0-5 UNITS TIDWMEALS SQ Last administered on 03/05/19at 08:15; Start 03/04/19 at 17:00 Dextrose (Dextrose 50%-Water Syringe) 12.5 gm PRN Q15MIN PRN IV SEE COMMENTS; Start 03/04/19 at 13:45 Dextrose 250 ml PRN Q15MIN PRN IV SEE COMMENTS; Start 03/04/19 at 13:45 Cephalexin HCl (Keflex) 500 mg QID PO Last administered on 03/05/19 08:15; Start 03/04/19 at 17:00 Enoxaparin Sodium (Lovenox 40mg Syringe) 40 mg Q24H SQ Last administered on 03/04/19at 17:53; Start 03/04/19 at 15:30 Lactobacillus Rhamnosus (Culturelle) 1 cap BID PO Last administered on 03/05/19 08:15; Start 03/04/19 at 21:00 Famotidine (Pepcid) 20 mg BID PO Last administered on 03/05/19 08:15; Start 03/05/19 at 01:00 Active Scripts Active Reported Proventil Hfa Inhaler (Albuterol Sulfate) 6.7 Gm Hfa.aer.ad 1 Puff IH PRN Q4HRS PRN Glipizide 10 Mg Tablet 1 Tab PO BID Metformin Hcl 1,000 Mg Tablet 1,000 Mg PO BIDWMEALS Zyprexa (Olanzapine) 20 Mg Tablet 1 Tab PO QHS Prozac (Fluoxetine Hcl) 40 Mg Capsule 1 Cap PO DAILY Trazodone Hcl 150 Mg Tablet 1 Tab PO QHS Lisinopril 10 Mg Tablet 1 Tab PO DAILY Vitals/I & O Vital Sign - Last 24 Hours 03/04/19 03/04/19 03/04/19 03/04/19 11:18 11:48 12:35 14:57 Temp 98.0 98.1 98.0 98.1 Pulse 80 79 74 Resp 15 18 18 B/P (MAP) 129/84 (99) 113/69 (84) Pulse Ox 100 99 98 O2 Delivery Room Air Room Air Room Air 03/04/19 03/04/19 03/04/19 03/04/19 15:08 19:00 20:00 22:52 Temp 98.7 98.0 98.7 98.0 Pulse 74 80 81 Resp 18 18 B/P (MAP) 113/69 155/96 (115) 132/73 (92) Pulse Ox 100 100 O2 Delivery Room Air Room Air Room Air 03/05/19 03/05/19 03:21 07:53 Temp 98.1 98.0 98.1 98.0 Pulse 75 60 Resp 18 18 B/P (MAP) 128/76 (93) 98/70 (79) Pulse Ox 99 99 O2 Delivery Room Air Room Air Intake and Output 03/04/19 03/04/19 03/05/19 15:00 23:00 07:00 Intake Total 1180 ml 360 ml Output Total 1402 ml 550 ml Balance 1180 ml -1042 ml -550 ml KATIUSKA RIGGS MD Mar 05, 2019 09:16
[2019-03-05] MEDS ORDERED: MAGNESIUM SULFATE 4GM 100 ML IV ONE (10:00)
[2019-03-05 11:29] VITALS: BP 98/61
[2019-03-05] MEDS: ENOXAPARIN 40 MG/0.4 ML SYRINGE. SQ SCH (15:30)
[2019-03-05 16:15] VITALS: BP 86/48
--- NOTE | 2019-03-05 17:05 | NUR ---
glucose of [address] James. metformin has been restarted. new orders for 12 lantus QHS. now orders for novolog 9 units total.
[2019-03-05] MEDS: metFORMIN 500 MG TABLET PO SCH (17:10)
[2019-03-05] MEDS ORDERED: INSULIN LISPRO 300 UNITS/3 ML INSULN.PEN. SQ ONE (17:30)
[2019-03-05 19:00] VITALS: BP 118/63
[2019-03-05] MEDS: traZODone 50 MG TABLET. PO SCH (20:17)
[2019-03-05] MEDS: OLANZapine 5 MG TABLET PO SCH (20:17)
[2019-03-05] MEDS ORDERED: INSULIN GLARGINE 300 UNITS/3 ML INSULN.PEN. SQ SCH (21:00)
[2019-03-05 22:30] VITALS: BP 93/61
[2019-03-06 02:31] VITALS: BP 124/78
--- NOTE | 2019-03-06 03:00 | NUR ---
Sudeep pimentel called because pt being very inappropriate and asking inappropriate questions to assistant professor of nursing. When pt was told that NA was not going to answer his questions, he began to masturbate. Nursing phlebotomy supervisor and security arrived. Everything taken out of pt's room and bed moved to where NA could sit outside of door and still see pt.
[2019-03-06 07:00] VITALS: BP 99/64
--- NOTE | 2019-03-06 07:48 | PDOC ---
PROGRESS NOTES Chief Complaint Chief Complaint A/P: PCP abuse Hypomagnesemia DM2 obesity polysubstance abuse SUICIDE IDEATION, MAJOR DEPRESSION HOMELESS social issues History of Present Illness History of Present Illness Mr Meyer is a 39yo AAM w/ PMH significant for DM2 and polysubstance abuse presents w/ AMS. Patient states he was discharged from [facility] 03/03. Positive for PCP this admit. Mag level 1.5. Blood glucose in the 300s. He has told staff he still wishes to kill himself and his ex-. Nursing staff had to summer camp counselor him on his masturbatory activities last night. He was verbally sexually inappropriate with nearly all female staff and had still expressed a plan and desire to murder his significant other. He is not speaking with me today. Allows my physical examination, but he just goes to eat his lunch. No complaints out loud. Plan: Involuntary commitment to inpatient psychiatry for suicidal ideation and h omicidal ideation with verbalized plan Vitals Vitals Vital Signs Date Time Temp Pulse Resp B/P (MAP) Pulse Ox O2 Delivery O2 Flow Rate FiO2 03/06/19 02:31 98.9 53 16 124/78 (93) 100 Room Air 98.9 Physical Exam General: Alert, Oriented X3, Cooperative Abdomen: Normal bowel sounds, Soft Extremities: No cyanosis Labs LABS Laboratory Tests Test 03/05/19 11:21 03/05/19 16:47 03/05/19 20:15 Glucose (Fingerstick) 307 mg/dL (70-99) 355 mg/dL (70-99) 266 mg/dL (70-99) Assessment and Plan Assessmemt and Plan Problems Medical Problems: (1) Alcohol abuse Status: Acute (2) Hypomagnesemia Status: Acute (3) PCP abuse Status: Acute Comment Review of Relevant I have reviewed the following items becki (where applicable) has been applied. Labs Laboratory Tests Test 03/04/19 11:36 03/04/19 17:43 03/04/19 19:14 03/05/19 07:44 Glucose (Fingerstick) 301 mg/dL (70-99) 444 mg/dL (70-99) 221 mg/dL (70-99) 308 mg/dL (70-99) Test 03/05/19 11:21 03/05/19 16:47 03/05/19 20:15 Glucose (Fingerstick) 307 mg/dL (70-99) 355 mg/dL (70-99) 266 mg/dL (70-99) Laboratory Tests Test 03/05/19 11:21 03/05/19 16:47 03/05/19 20:15 Glucose (Fingerstick) 307 mg/dL (70-99) 355 mg/dL (70-99) 266 mg/dL (70-99) Medications Current Medications Multivitamins 10 ml/Thiamine HCl 100 mg/Folic Acid 1 mg/Sodium Chloride 1,011.2 ml @ 1,000 mls/ hr Q1H IV ; Start 03/04/19 at 03:15; Status Cancel Sodium Chloride 1,000 ml @ 1,000 mls/hr 1X ONCE IV Last administered on 03/04/19at 05:10; Start 03/04/19 at 04:45; Stop 03/04/19 at 05:44; Status DC Magnesium Sulfate 50 ml @ 25 mls/hr 1X ONCE IV Last administered on 03/04/19at 05:10; Start 03/04/19 at 04:45; Stop 03/04/19 at 06:44; Status DC Multivitamins 10 ml/Thiamine HCl 100 mg/Folic Acid 1 mg/Sodium Chloride 1,011.2 ml @ 1,000.088 mls/hr 1X ONCE IV Last administered on 03/04/19at 04:58; Start 03/04/19 at 03:00; Stop 03/04/19 at 05:06; Status DC Sodium Chloride 1,000 ml @ 1,000 mls/hr 1X ONCE IV Last administered on 03/04/19at 09:40; Start 03/04/19 at 09:15; Stop 03/04/19 at 10:14; Status DC Albuterol Sulfate (Ventolin Neb Soln) 2.5 mg PRN Q4HRS PRN NEB FOR ASTHMA; Start 03/04/19 at 13:30 Lisinopril (Prinivil) 10 mg DAILY PO Last administered on 03/04/19at 15:08; Start 03/04/19 at 14:00 Fluoxetine HCl (PROzac) 40 mg DAILY PO Last administered on 03/05/19at 08:15; Start 03/04/19 at 14:00 Glipizide (Glucotrol) 10 mg BIDBFRMEAL PO Last administered on 03/05/19 17:14; Start 03/04/19 at 16:30 Olanzapine (ZyPREXA) 20 mg QHS PO Last administered on 03/05/19 20:29; Start 03/04/19 at 21:00 Trazodone HCl (Desyrel) 150 mg QHS PO Last administered on 03/05/19 20:29; Start 03/04/19 at 21:00 Insulin Human Lispro (HumaLOG) 0-5 UNITS TIDWMEALS SQ Last administered on 03/05/19 17:14; Start 03/04/19 at 17:00 Dextrose (Dextrose 50%-Water Syringe) 12.5 gm PRN Q15MIN PRN IV SEE COMMENTS; Start 03/04/19 at 13:45 Dextrose 250 ml PRN Q15MIN PRN IV SEE COMMENTS; Start 03/04/19 at 13:45 Cephalexin HCl (Keflex) 500 mg QID PO Last administered on 03/05/19 20:29; Start 03/04/19 at 17:00 Enoxaparin Sodium (Lovenox 40mg Syringe) 40 mg Q24H SQ Last administered on 03/04/19 17:53; Start 03/04/19 at 15:30 Lactobacillus Rhamnosus (Culturelle) 1 cap BID PO Last administered on 03/05/19 20:29; Start 03/04/19 at 21:00 Famotidine (Pepcid) 20 mg BID PO Last administered on 03/05/19 20:29; Start 03/05/19 at 01:00 Magnesium Sulfate/ Dextrose 100 ml @ 25 mls/hr 1X ONCE IV ; Start 03/05/19 at 10:00; Stop 03/05/19 at 13:59; Status DC Metformin HCl (Glucophage) 1,000 mg BIDWMEALS PO Last administered on 03/05/19 17:14; Start 03/05/19 at 17:00 Insulin Human Lispro (HumaLOG) 4 units 1X ONCE SQ Last administered on 03/05/19 17:14; Start 03/05/19 at 17:30; Stop 03/05/19 at 17:31; Status DC Insulin Glargine (Lantus) 12 units QHS SQ Last administered on 03/05/19 20:29; Start 03/05/19 at 21:00 Active Scripts Active Reported Proventil Hfa Inhaler (Albuterol Sulfate) 6.7 Gm Hfa.aer.ad 1 Puff IH PRN Q4HRS PRN Glipizide 10 Mg Tablet 1 Tab PO BID Metformin Hcl 1,000 Mg Tablet 1,000 Mg PO BIDWMEALS Zyprexa (Olanzapine) 20 Mg Tablet 1 Tab PO QHS Prozac (Fluoxetine Hcl) 40 Mg Capsule 1 Cap PO DAILY Trazodone Hcl 150 Mg Tablet 1 Tab PO QHS Lisinopril 10 Mg Tablet 1 Tab PO DAILY Vitals/I & O Vital Sign - Last 24 Hours 03/05/19 03/05/19 03/05/19 03/05/19 07:53 08:00 11:29 15:59 Temp 98.0 98.5 98.0 98.5 Pulse 60 60 Resp 18 18 B/P (MAP) 98/70 (79) 98/61 (73) Pulse Ox 99 98 O2 Delivery Room Air Room Air Room Air Room Air 03/05/19 03/05/19 03/05/19 03/05/19 16:15 19:00 19:05 22:30 Temp 98.5 98.1 98.1 98.5 98.1 98.1 Pulse 62 68 58 Resp 16 18 16 B/P (MAP) 86/48 (61) 118/63 (81) 93/61 (72) Pulse Ox 100 98 99 O2 Delivery Room Air Room Air Room Air Room Air 03/06/19 02:31 Temp 98.9 98.9 Pulse 53 Resp 16 B/P (MAP) 124/78 (93) Pulse Ox 100 O2 Delivery Room Air Intake and Output 03/05/19 03/05/19 03/06/19 14:59 22:59 06:59 Intake Total 1040 ml 900 ml Output Total 900 ml Balance 140 ml 900 ml KATIUSKA RIGGS MD Mar 06, 2019 07:48
[2019-03-06] MEDS ORDERED: INSULIN LISPRO 300 UNITS/3 ML INSULN.PEN. SQ SCH (08:00)
[2019-03-06] MEDS: INSULIN LISPRO 300 UNITS/3 ML INSULN.PEN. SQ SCH ×5 (08:39→17:50)
[2019-03-06] MEDS: FAMOTIDINE 20 MG TABLET. PO SCH ×2 (08:41→21:12)
[2019-03-06] MEDS: LACTOBACILLUS RHAMNOSUS GG 1 CAPSULE. PO SCH ×2 (08:41→21:12)
[2019-03-06] MEDS: glipiZIDE 5 MG TABLET PO SCH ×2 (08:41→17:49)
[2019-03-06] MEDS: metFORMIN 500 MG TABLET PO SCH ×2 (08:41→17:49)
[2019-03-06] MEDS: FLUoxetine HCL 20 MG CAPSULE PO SCH (08:41)
[2019-03-06] MEDS: CEPHALEXIN 250 MG CAPSULE. PO SCH ×4 (08:41→21:12)
[2019-03-06] MEDS: LISINOPRIL 10 MG TABLET PO SCH (09:00)
[2019-03-06 11:00] VITALS: BP 105/73
[2019-03-06] MEDS: INSULIN GLARGINE 300 UNITS/3 ML INSULN.PEN. SQ SCH ×2 (11:30→21:15)
--- NOTE | 2019-03-06 11:31 | NUR ---
Pt still wearing shorts. Per report, protocol was followed and every attempt was made to have the pt change into a gown. Pt still refused after unsuccessful attempts.
[2019-03-06] MEDS ORDERED: GLIP10TA13 PO (11:32)
[2019-03-06] MEDS ORDERED: ALBU2.5V8 IH (11:32)
[2019-03-06] MEDS ORDERED: LISI10TA2 PO (11:32)
[2019-03-06] MEDS ORDERED: LACT1CAP19 PO (11:32)
[2019-03-06] MEDS ORDERED: INSU100I11 SQ (11:32)
[2019-03-06] MEDS ORDERED: FLUO40CA9 PO (11:32)
[2019-03-06] MEDS ORDERED: FAMO20TA5 PO (11:32)
[2019-03-06] MEDS ORDERED: CEPH250C PO (11:32)
[2019-03-06] MEDS ORDERED: OLAN20TA3 PO (11:32)
[2019-03-06] MEDS ORDERED: TRAZ150T49 PO (11:32)
[2019-03-06] MEDS ORDERED: INSU100I13 SQ (11:32)
[2019-03-06] MEDS ORDERED: METF10007 PO (11:32)
--- NOTE | 2019-03-06 11:33 | SNU/HH DC ---
DISCHARGE ORDERS DISCHARGE INFORMATION: DISCHARGE DATE: Mar 06, 2019 FINAL DIAGNOSIS Problems Medical Problems: (1) Alcohol abuse Status: Acute (2) Hypomagnesemia Status: Acute (3) PCP abuse Status: Acute CONDITION ON DISCHARGE: Stable CODE STATUS: Code Status: Full POST DISCHARGE ORDERS: ACTIVITY ORDERS: No restrictions WEIGHT BEARING STATUS: No restrictions DIET AFTER DISCHARGE: ADA CHECKS AFTER DISCHARGE: CHECKS AFTER DISCHARGE: Check blood press - daily, Check blood sugar, ac/hs, Check your Temp as needed DISCHARGE MEDICATIONS: Home Meds Active Scripts Insulin Lispro (HUMALOG) 100 Unit/1 Ml Insuln.pen, 8 UNITS SQ TIDAC for dm2 for 30 Days, #1 EACH + Sliding scale 1u for every 50mg/dL over 150mg/dL glucose Prov:KATIUSKA RIGGS MD 03/06/19 Insulin Glargine,Hum.rec.anlog (LANTUS SOLOSTAR) 100 Unit/1 Ml Insuln.pen, 15 UNITS SQ QHS for DM2 for 30 Days, #1 EACH Prov:KATIUSKA RIGGS MD 03/06/19 Lactobacillus Rhamnosus Gg (CULTURELLE) 1 Each Cap.sprink, 1 CAP PO BID for Diarrhea for 5 Days, #10 CAP Prov:KATIUSKA RIGGS MD 03/06/19 Famotidine (FAMOTIDINE) 20 Mg Tablet, 20 MG PO BID for GERD for 30 Days, #60 TAB Prov:KATIUSKA RIGGS MD 03/06/19 Cephalexin (CEPHALEXIN) 250 Mg Capsule, 500 MG PO QID for Cellulitis for 5 Days, #40 CAP Prov:KATIUSKA RIGGS MD 03/06/19 Albuterol Sulfate (PROVENTIL HFA INHALER) 6.7 Gm Hfa.aer.ad, 1 PUFF IH PRN Q4HRS PRN for FOR ASTHMA for 30 Days, #1 INHALER 0 Refills Prov:KATIUSKA RIGGS MD 03/06/19 Glipizide (GLIPIZIDE) 10 Mg Tablet, 1 TAB PO BID for DM II for 30 Days, #60 TAB 5 Refills Prov:KATIUSKA RIGGS MD 03/06/19 Metformin Hcl (METFORMIN HCL) 1,000 Mg Tablet, 1000 MG PO BIDWMEALS for DM II for 30 Days, #60 TAB Prov:KATIUSKA RIGGS MD 03/06/19 Olanzapine (ZYPREXA) 20 Mg Tablet, 1 TAB PO QHS for SCHIZOPHRENIA for 30 Days, #30 TAB Prov:KATIUSKA RIGGS MD 03/06/19 Fluoxetine Hcl (PROZAC) 40 Mg Capsule, 1 CAP PO DAILY for MOOD for 30 Days, #30 CAP 0 Refills Prov:KATIUSKA RIGGS MD 03/06/19 Trazodone Hcl (TRAZODONE HCL) 150 Mg Tablet, 1 TAB PO QHS for INSOMNIA for 30 Days, #30 TAB 0 Refills Prov:KATIUSKA RIGGS MD 03/06/19 Lisinopril (LISINOPRIL) 10 Mg Tablet, 1 TAB PO DAILY for HTN for 30 Days, #30 TAB 0 Refills Prov:KATIUSKA RIGGS MD 03/06/19 KATIUSKA RIGGS MD Mar 06, 2019 11:33
--- NOTE | 2019-03-06 11:36 | PDOC3 ---
Discharge Summary Visit Information Date of Admission: Mar 04, 2019 Date of Discharge: Mar 06, 2019 Admitting Diagnosis: Homicidal ideation Final Diagnosis Problems Medical Problems: (1) Alcohol abuse Status: Acute (2) Hypomagnesemia Status: Acute (3) PCP abuse Status: Acute Brief Hospital Course Allergies Allergies Coded Allergies Type Severity Reaction Last Updated Verified No Known Drug Allergies 03/04/19 No Vital Signs Vital Signs Date Time Temp Pulse Resp B/P (MAP) Pulse Ox O2 Delivery O2 Flow Rate FiO2 03/06/19 08:00 Room Air 03/06/19 07:00 63 18 99/64 (76) 03/06/19 02:31 98.9 100 98.9 Lab Results Laboratory Tests Test 03/04/19 11:36 03/04/19 17:43 03/04/19 19:14 03/05/19 07:44 Glucose (Fingerstick) 301 mg/dL (70-99) 444 mg/dL (70-99) 221 mg/dL (70-99) 308 mg/dL (70-99) Test 03/05/19 11:21 03/05/19 16:47 03/05/19 20:15 03/06/19 08:38 Glucose (Fingerstick) 307 mg/dL (70-99) 355 mg/dL (70-99) 266 mg/dL (70-99) 221 mg/dL (70-99) Laboratory Tests Test 03/05/19 16:47 03/05/19 20:15 03/06/19 08:38 Glucose (Fingerstick) 355 mg/dL (70-99) 266 mg/dL (70-99) 221 mg/dL (70-99) Brief Hospital Course Mr Meyer is a 39yo AAM w/ PMH significant for DM2 and polysubstance abuse presents w/ AMS. Patient states he was discharged from [facility] 03/03. Positive for PCP this admit. Mag level 1.5. Blood glucose in the 300s. He has told staff he still wishes to kill himself and his ex-. Nursing staff had to sexual abuse counsellor him on his masturbatory activities last night. He was verbally sexually inappropriate with nearly all female staff and had still expressed a plan and desire to murder his significant other. He is not speaking with me today. Allows my physical examination, but he just goes to eat his lunch. No complaints out loud. Plan: Involuntary commitment to inpatient psychiatry for suicidal ideation and homi cidal ideation with verbalized plan. D/w PAT team and awaiting state assessment at this time. Assessment: PCP abuse Hypomagnesemia DM2 obesity polysubstance abuse SUICIDE IDEATION, MAJOR DEPRESSION HOMELESS social issues Greater than 30 minutes spent on discharge Discharge Information Condition at Discharge: Stable Follow Up: Weeks (1) Disposition/Orders: D/C to Another Facility Scheduled Cephalexin (Cephalexin) 250 Mg Capsule, 500 MG PO QID for Cellulitis for 5 Days, #40 Prescribed by: KATIUSKA RIGGS MD on 03/06/19 1132 Famotidine (Famotidine) 20 Mg Tablet, 20 MG PO BID for GERD for 30 Days, #60 Prescribed by: KATIUSKA RIGGS MD on 03/06/19 1132 Fluoxetine Hcl (Prozac) 40 Mg Capsule, 1 CAP PO DAILY for MOOD for 30 Days, #30 Ref 0 Prescribed by: KATIUSKA RIGGS MD on 03/06/19 1132 Glipizide (Glipizide) 10 Mg Tablet, 1 TAB PO BID for DM II for 30 Days, #60 Ref 5 Prescribed by: KATIUSKA RIGGS MD on 03/06/19 1132 Insulin Glargine,Hum.rec.anlog (Lantus Solostar) 100 Unit/1 Ml Insuln.pen, 15 UNITS SQ QHS for DM2 for 30 Days, #1 Prescribed by: KATIUSKA RIGGS MD on 03/06/19 1132 Insulin Lispro (Humalog) 100 Unit/1 Ml Insuln.pen, 8 UNITS SQ TIDAC for dm2 for 30 Days, #1 + Sliding scale 1u for every 50mg/dL over 150mg/dL glucose Prescribed by: KAITUSKA RIGGS MD on 03/06/19 1132 Lactobacillus Rhamnosus Gg (Culturelle) 1 Each Cap.sprink, 1 CAP PO BID for Diarrhea for 5 Days, #10 Prescribed by: KATIUSKA RIGGS MD on 03/06/19 1132 Lisinopril (Lisinopril) 10 Mg Tablet, 1 TAB PO DAILY for HTN for 30 Days, #30 Ref 0 Prescribed by: KATIUSKA RIGGS MD on 03/06/19 1132 Metformin Hcl (Metformin Hcl) 1,000 Mg Tablet, 1,000 MG PO BIDWMEALS for DM II for 30 Days, #60 Prescribed by: KATIUSKA RIGGS MD on 03/06/19 1132 Olanzapine (Zyprexa) 20 Mg Tablet, 1 TAB PO QHS for SCHIZOPHRENIA for 30 Days, #30 Prescribed by: KATIUSKA RIGGS MD on 03/06/19 1132 Trazodone Hcl (Trazodone Hcl) 150 Mg Tablet, 1 TAB PO QHS for INSOMNIA for 30 Days, #30 Ref 0 Prescribed by: KATIUSKA RIGGS MD on 03/06/19 1132 Scheduled PRN Albuterol Sulfate (Proventil Hfa Inhaler) 6.7 Gm Hfa.aer.ad, 1 PUFF IH PRN Q4HRS PRN for FOR ASTHMA for 30 Days, #1 Ref 0 Prescribed by: KATIUSKA RIGGS MD on 03/06/19 1132 KATIUSKA RIGGS MD Mar 06, 2019 11:36
--- NOTE | 2019-03-06 11:55 | NUR ---
Lantus incorrectly ordered to start at 1130, pt will receive dose at HS. No new orders at this time. Will continue to monitor pt.
[2019-03-06 14:55] VITALS: BP 108/74
[2019-03-06] MEDS: ENOXAPARIN 40 MG/0.4 ML SYRINGE. SQ SCH (15:30)
[2019-03-06 19:00] VITALS: BP 112/65
[2019-03-06] MEDS: OLANZapine 5 MG TABLET PO SCH (21:12)
[2019-03-06] MEDS: traZODone 50 MG TABLET. PO SCH (21:12)
[2019-03-06 23:03] VITALS: BP 94/56
[2019-03-07 03:00] VITALS: BP 132/81
[2019-03-07 07:00] VITALS: BP 108/74
[2019-03-07] MEDS: FLUoxetine HCL 20 MG CAPSULE PO SCH (08:06)
[2019-03-07] MEDS: LISINOPRIL 10 MG TABLET PO SCH (08:06)
[2019-03-07] MEDS: FAMOTIDINE 20 MG TABLET. PO SCH (08:06)
[2019-03-07] MEDS: LACTOBACILLUS RHAMNOSUS GG 1 CAPSULE. PO SCH (08:06)
[2019-03-07] MEDS: metFORMIN 500 MG TABLET PO SCH ×2 (08:07→16:33)
[2019-03-07] MEDS: CEPHALEXIN 250 MG CAPSULE. PO SCH ×3 (08:07→16:32)
[2019-03-07] MEDS: glipiZIDE 5 MG TABLET PO SCH ×2 (08:07→16:33)
[2019-03-07] MEDS: INSULIN LISPRO 300 UNITS/3 ML INSULN.PEN. SQ SCH ×6 (08:14→16:37)
--- NOTE | 2019-03-07 08:54 | NUR ---
ROSENDA following pt. Spoke with Soraida from PAT team regarding OSH placement. She reports OSH screen was done yesterday and no new update at this time. Soraida to notify ROSENDA regarding process- PAT team will have to petition the court once bed opens at OSH. Will continue to follow.
--- NOTE | 2019-03-07 10:21 | NUR ---
SW following pt. Spoke with Sena at OSH triage, , fax; [phone] and faxed clinicals. Passed Phone number to RN to call for nursing report. Admission pending. Will continue to follow.
[2019-03-07 10:55] VITALS: BP 109/60
--- NOTE | 2019-03-07 14:05 | PDOC ---
PROGRESS NOTES Chief Complaint Chief Complaint agitation and psychosis on admit, PCP abuse Hypomagnesemia DM2 obesity polysubstance abuse SUICIDE IDEATION, MAJOR DEPRESSION HOMELESS social issues History of Present Illness History of Present Illness Mr Meyer is a 39yo AAM w/ PMH significant for DM2 and polysubstance abuse presents w/ AMS. Patient states he was discharged from [facility] 03/03. Positive for PCP this admit. Mag level 1.5. Blood glucose in the 300s. He has told staff he still wishes to kill himself and his ex-. more calm today he is agreeable to voluntary admit today, plan [place] skin areas on shins are much improvd calm with zyprexa and trazodone HS cont the SSRI Vitals Vitals Vital Signs Date Time Temp Pulse Resp B/P (MAP) Pulse Ox O2 Delivery O2 Flow Rate FiO2 03/07/19 10:55 97.9 66 18 109/60 (76) 99 Room Air 97.9 Physical Exam General: Alert, Oriented X3, Cooperative, No acute distress Heart: Regular rate Abdomen: Normal bowel sounds, Soft Extremities: No cyanosis Labs LABS Laboratory Tests Test 03/06/19 16:50 03/06/19 18:59 03/07/19 07:54 03/07/19 11:48 Glucose (Fingerstick) 275 mg/dL (70-99) 211 mg/dL (70-99) 260 mg/dL (70-99) 113 mg/dL (70-99) Assessment and Plan Assessmemt and Plan Problems Medical Problems: (1) Alcohol abuse Status: Acute (2) Hypomagnesemia Status: Acute (3) PCP abuse Status: Acute Comment Review of Relevant I have reviewed the following items becki (where applicable) has been applied. Labs Laboratory Tests Test 03/05/19 16:47 03/05/19 20:15 03/06/19 08:38 03/06/19 11:55 Glucose (Fingerstick) 355 mg/dL (70-99) 266 mg/dL (70-99) 221 mg/dL (70-99) 208 mg/dL (70-99) Test 03/06/19 16:50 03/06/19 18:59 03/07/19 07:54 03/07/19 11:48 Glucose (Fingerstick) 275 mg/dL (70-99) 211 mg/dL (70-99) 260 mg/dL (70-99) 113 mg/dL (70-99) Laboratory Tests Test 03/06/19 16:50 03/06/19 18:59 03/07/19 07:54 03/07/19 11:48 Glucose (Fingerstick) 275 mg/dL (70-99) 211 mg/dL (70-99) 260 mg/dL (70-99) 113 mg/dL (70-99) Medications Current Medications Multivitamins 10 ml/Thiamine HCl 100 mg/Folic Acid 1 mg/Sodium Chloride 1,011.2 ml @ 1,000 mls/ hr Q1H IV ; Start 03/04/19 at 03:15; Status Cancel Sodium Chloride 1,000 ml @ 1,000 mls/hr 1X ONCE IV Last administered on 9at 05:10; Start 03/04/19 at 04:45; Stop 03/04/19 at 05:44; Status DC Magnesium Sulfate 50 ml @ 25 mls/hr 1X ONCE IV Last administered on 03/04/19at 05:10; Start 03/04/19 at 04:45; Stop 03/04/19 at 06:44; Status DC Multivitamins 10 ml/Thiamine HCl 100 mg/Folic Acid 1 mg/Sodium Chloride 1,011.2 ml @ 1,000.088 mls/hr 1X ONCE IV Last administered on 03/04/19at 04:58; Start 03/04/19 at 03:00; Stop 03/04/19 at 05:06; Status DC Sodium Chloride 1,000 ml @ 1,000 mls/hr 1X ONCE IV Last administered on 03/04/19at 09:40; Start 03/04/19 at 09:15; Stop 03/04/19 at 10:14; Status DC Albuterol Sulfate (Ventolin Neb Soln) 2.5 mg PRN Q4HRS PRN NEB FOR ASTHMA Last administered on 03/07/19at 07:35; Start 03/04/19 at 13:30 Lisinopril (Prinivil) 10 mg DAILY PO Last administered on 03/07/19at 08:15; Start 03/04/19 at 14:00 Fluoxetine HCl (PROzac) 40 mg DAILY PO Last administered on 8/12/19at 08:15; Start 03/04/19 at 14:00 Glipizide (Glucotrol) 10 mg BIDBFRMEAL PO Last administered on 03/07/19 08:15; Start 03/04/19 at 16:30 Olanzapine (ZyPREXA) 20 mg QHS PO Last administered on 03/06/19 21:12; Start 03/04/19 at 21:00 Trazodone HCl (Desyrel) 150 mg QHS PO Last administered on 03/06/19 21:12; Start 03/04/19 at 21:00 Insulin Human Lispro (HumaLOG) 0-5 UNITS TIDWMEALS SQ Last administered on 03/07/19 08:15; Start 03/04/19 at 17:00 Dextrose (Dextrose 50%-Water Syringe) 12.5 gm PRN Q15MIN PRN IV SEE COMMENTS; Start 03/04/19 at 13:45 Dextrose 250 ml PRN Q15MIN PRN IV SEE COMMENTS; Start 03/04/19 at 13:45 Cephalexin HCl (Keflex) 500 mg QID PO Last administered on 03/07/19at 12:56; Start 03/04/19 at 17:00 Enoxaparin Sodium (Lovenox 40mg Syringe) 40 mg Q24H SQ Last administered on 03/04/19 17:53; Start 03/04/19 at 15:30 Lactobacillus Rhamnosus (Culturelle) 1 cap BID PO Last administered on 08:15; Start 03/04/19 at 21:00 Famotidine (Pepcid) 20 mg BID PO Last administered on 03/07/19 08:15; Start 03/05/19 at 01:00 Magnesium Sulfate/ Dextrose 100 ml @ 25 mls/hr 1X ONCE IV ; Start 03/05/19 at 10:00; Stop 03/05/19 at 13:59; Status DC Metformin HCl (Glucophage) 1,000 mg BIDWMEALS PO Last administered on 03/07/19 08:15; Start 03/05/19 at 17:00 Insulin Human Lispro (HumaLOG) 4 units 1X ONCE SQ Last administered on 03/05/19 17:14; Start 03/05/19 at 17:30; Stop 03/05/19 at 17:31; Status DC Insulin Glargine (Lantus) 12 units QHS SQ Last administered on 03/05/19at 20:29; Start 03/05/19 at 21:00; Stop 03/06/19 at 11:25; Status DC Insulin Human Lispro (HumaLOG) 5 units TIDAC SQ Last administered on 03/06/19at 08:42; Start 03/06/19 at 08:00; Stop 03/06/19 at 11:25; Status DC Insulin Glargine (Lantus) 15 units QHS SQ Last administered on 03/06/19at 21:15; Start 03/06/19 at 11:30 Insulin Human Lispro (HumaLOG) 8 units TIDAC SQ Last administered on 03/07/19at 12:56; Start 03/06/19 at 11:30 Active Scripts Active Humalog (Insulin Lispro) 100 Unit/1 Ml Insuln.pen 8 Units SQ TIDAC 30 Days + Sliding scale 1u for every 50mg/dL over 150mg/dL glucose Lantus Solostar (Insulin Glargine,Hum.rec.anlog) 100 Unit/1 Ml Insuln.pen 15 Units SQ QHS 30 Days Culturelle (Lactobacillus Rhamnosus Gg) 1 Each Cap.sprink 1 Cap PO BID 5 Days Famotidine 20 Mg Tablet 20 Mg PO BID 30 Days Cephalexin 250 Mg Capsule 500 Mg PO QID 5 Days Proventil Hfa Inhaler (Albuterol Sulfate) 6.7 Gm Hfa.aer.ad 1 Puff IH PRN Q4HRS PRN 30 Days Glipizide 10 Mg Tablet 1 Tab PO BID 30 Days Metformin Hcl 1,000 Mg Tablet 1,000 Mg PO BIDWMEALS 30 Days Zyprexa (Olanzapine) 20 Mg Tablet 1 Tab PO QHS 30 Days Prozac (Fluoxetine Hcl) 40 Mg Capsule 1 Cap PO DAILY 30 Days Trazodone Hcl 150 Mg Tablet 1 Tab PO QHS 30 Days Lisinopril 10 Mg Tablet 1 Tab PO DAILY 30 Days Vitals/I & O Vital Sign - Last 24 Hours 03/06/19 03/06/19 03/06/19 03/06/19 14:55 19:00 20:18 23:03 Temp 98.4 98.5 98.4 98.5 Pulse 89 63 66 Resp 18 18 20 B/P (MAP) 108/74 (85) 112/65 (81) 94/56 (69) Pulse Ox 98 99 99 O2 Delivery Room Air Room Air Room Air Room Air 03/07/19 03/07/19 03/07/19 03/07/19 03:00 07:00 07:36 08:15 Temp 97.7 98.0 97.7 98.0 Pulse 69 89 89 Resp 18 18 B/P (MAP) 132/81 (98) 108/74 (85) 108/74 Pulse Ox 95 99 98 O2 Delivery Room Air Room Air Room Air 03/07/19 10:55 Temp 97.9 97.9 Pulse 66 Resp 18 B/P (MAP) 109/60 (76) Pulse Ox 99 O2 Delivery Room Air Intake and Output 03/06/19 03/06/19 03/07/19 15:00 23:00 07:00 Intake Total 600 ml 740 ml 400 ml Output Total 700 ml 700 ml 750 ml Balance -100 ml 40 ml -350 ml JUNIOR [place] MD Mar 07, 2019 14:04
[2019-03-07 14:42] VITALS: BP 105/69
--- NOTE | 2019-03-07 16:02 | NUR ---
SW following pt. Notified by Kieran, Pt is able to go to OSH today. SW arranged transportation via [facility] who requested prior auth from insurance or approval from [facility]. Phoned pt's insurance and was transferred to 5 departments- spoke with [employer] and they do not provide Secure transport. [facility] able to take pt if [facility] can confirm to provide payment incase insurance declines. carding supervisor spoke with admin-approved. Pt is scheduled to be picked up by [facility] at 1999. Packet on chart. Kieran and pt's RN notified.
[2019-03-07] MEDS: ENOXAPARIN 40 MG/0.4 ML SYRINGE. SQ SCH (16:33)
[2019-03-07 19:29] VITALS: BP 99/55
--- NOTE | 2019-03-07 21:16 | NUR ---
Discharge Note: GORDON KRAMER [facility] Discharge instructions and discharge home medications reviewed with Other facility and a copy given. All questions have been answered and understanding verbalized. Discontinued lines and drains: no peripheral IV was in place at this time. Patient discharged to OSH with Ambulance Personnel via [facility].
== END 2019-03-07 21:20 | DRG 640 ==
LOC: ER 02:40 → 5 SOUTH 10:02
PROVIDERS: ADMIT Internal Medicine; ATTEND Internal Medicine
DX: E83.42 Hypomagnesemia (principal); G92 Toxic encephalopathy; R45.851 Suicidal ideations; E10.9 Type 1 diabetes mellitus without complications; F16.10 Hallucinogen abuse, uncomplicated; F17.210 Nicotine dependence, cigarettes, uncomplicated; E66.9 Obesity, unspecified; F20.9 Schizophrenia, unspecified; R45.850 Homicidal ideations; F32.9 Major depressive disorder, single episode, unspecified; F10.10 Alcohol abuse, uncomplicated; Z59.0 Homelessness; Z82.49 Family history of ischemic heart disease and other diseases of the circulatory system; Z68.24 Body mass index [BMI] 24.0-24.9, adult; Z79.4 Long term (current) use of insulin
CPT/HCPCS: 36415; 80053; 80307; 80329; 81001; 82962; 83605; 83690; 83735; 85025; 93005; 94640; 94760; 96361; 96365; 96368; G0480; J1650; J1815; J3475; J7030; J7613; 99285-25; G0378

== ENCOUNTER 2019-04-01 12:19 | Inpatient (IN) | payer MEDICAID ==
[~2019-04-01] VITALS: Ht 190.5 cm; Wt 91.9 kg
[~2019-04-01 12:19] MED LIST: ALBU2.5V8 IH; CEPH250C PO; FAMO20TA5 PO; FLUO40CA9 PO; GLIP10TA13 PO; INSU100I11 SQ; INSU100I13 SQ; LACT1CAP19 PO; LISI10TA2 PO; METF10007 PO; OLAN20TA3 PO; TRAZ150T49 PO
[2019-04-01] MEDS ORDERED: IV NORMAL SALINE 1000ML BAG 1,000 ML IV SCH (12:26)
[2019-04-01] MEDS ORDERED: NALOXONE 2 MG/2 ML DISP.SYRIN. IV ONE (12:30)
[2019-04-01 12:45] LABS: BASO % 0 % (0-3); EOS # 0.2 x10^3/uL (0.0-0.7); EOS % 4 % (0-3); HEMATOCRIT 41.6 % (39.0-53.0); HEMOGLOBIN 13.7 g/dL (13.0-17.5); LYMPH # 0.8 x10^3/uL (1.0-4.8); LYMPH % 13 % (24-48); MEAN CORPUSCULAR HEMOGLOBIN 26 pg (25-35); MEAN CORPUSCULAR HGB CONC 33 g/dL (31-37); MEAN CORPUSCULAR VOLUME 78 fL (79-100); MONO # 0.3 x10^3/uL (0.0-1.1); MONO % 5 % (0-9); NEUT % 78 % (31-73); PLATELET COUNT 183 x10^3/uL (140-400); RED BLOOD COUNT 5.33 x10^6/uL (4.30-5.70); RED CELL DISTRIBUTION WIDTH 14.2 % (11.5-14.5); WHITE BLOOD COUNT 6.4 x10^3/uL (4.0-11.0)
--- NOTE | 2019-04-01 12:46 | PHYS DOC ---
Past Medical History Past Medical History: Diabetes-Type I Additional Past Medical Histor: SUBSTANCE ABUSE Past Surgical History: No Surgical History Alcohol Use: Heavy Drug Use: Cocaine, Methamphetamine, Phencyclidine Adult General Chief Complaint Chief Complaint: altered level of consciousness [facility] HPI Patient is a 39 year old male who presents via EMS with with drug overdose and altered level of consciousness. Patient was at a dentist office with drowsiness and altered level of consciousness and stated he took every 20 pills of 800 mg ibuprofen, 20 pills of trazodone and 20 pills of Prozac today because of suicidal ideation and wanted to kill himself because he doesn't have any friends. Patient is drowsiness and somnolent but answering the question appropriately. According to EMS patient using PCP daily and was transferred to different medical places on March 30 and April 01 by EMS. Patient denies homicidal ideation and hallucination and states he was at [facility] with suicidal attempt about 5 years ago. Review of Systems Review of Systems Constitutional: Denies fever or chills [] Eyes: Denies change in visual acuity, redness, or eye pain [] HENT: Denies nasal congestion or sore throat [] Respiratory: Denies cough or shortness of breath [] Cardiovascular: No additional information not addressed in HPI [] GI: Denies abdominal pain, nausea, vomiting, bloody stools or diarrhea [] : Denies dysuria or hematuria [] Musculoskeletal: Denies back pain or joint pain [] Integument: Denies rash or skin lesions [] Neurologic: Denies headache, focal weakness or sensory changes [] Endocrine: Denies polyuria or polydipsia [] All other systems were reviewed and found to be within normal limits, except as documented in this note. Current Medications Current Medications Current Medications Medications (Trade) Dose Ordered Sig/Michael Start Time Stop Time Status Last Admin Dose Admin Naloxone HCl (Narcan) 1 mg 1X ONCE 04/01/19 12:30 04/01/19 12:31 DC 04/01/19 13:11 1 MG Sodium Chloride 1,000 ml @ 1,000 mls/hr Q1H 04/01/19 12:26 04/01/19 13:25 DC 04/01/19 13:11 1,000 MLS/HR Allergies Allergies Allergies Coded Allergies Type Severity Reaction Last Updated Verified No Known Drug Allergies 03/04/19 No Physical Exam Physical Exam Constitutional: Well nourished, mild distress, somnolent, non-toxic appearance. [] HENT: Normocephalic, atraumatic, good gag reflex. Eyes: PERRLA, EOMI, conjunctiva normal, no discharge. [] Neck: Normal range of motion, no tenderness, supple, no stridor. [] Cardiovascular:Heart rate regular rhythm, no murmur [] Lungs & Thorax: Bilateral breath sounds clear to auscultation [] Abdomen: Bowel sounds normal, soft, no tenderness, no masses, no pulsatile masses. [] Skin: Warm, dry, no erythema, no rash. [] Back: No tenderness, no CVA tenderness. [] Extremities: No tenderness, no cyanosis, no clubbing, ROM intact, no edema. [] Neurologic: Alert and oriented X 3 but somnolent, no focal deficits noted. [] Psychologic: Affect flat, suicidal. Current Patient Data Vital Signs Vital Signs Date Time Temp Pulse Resp B/P (MAP) Pulse Ox O2 Delivery O2 Flow Rate FiO2 04/01/19 12:19 98.1 99 17 139/90 (106) 100 Room Air 98.1 Lab Values Laboratory Tests Test 04/01/19 12:27 White Blood Count 6.4 x10^3/uL (4.0-11.0) Red Blood Count 5.33 x10^6/uL (4.30-5.70) Hemoglobin 13.7 g/dL (13.0-17.5) Hematocrit 41.6 % (39.0-53.0) Mean Corpuscular Volume 78 fL (79-100) L Mean Corpuscular Hemoglobin 26 pg (25-35) Mean Corpuscular Hemoglobin Concent 33 g/dL (31-37) Red Cell Distribution Width 14.2 % (11.5-14.5) Platelet Count 183 x10^3/uL (140-400) Neutrophils (%) (Auto) 78 % (31-73) H Lymphocytes (%) (Auto) 13 % (24-48) L Monocytes (%) (Auto) 5 % (0-9) Eosinophils (%) (Auto) 4 % (0-3) H Basophils (%) (Auto) 0 % (0-3) Neutrophils # (Auto) 5.0 x10^3/uL (1.8-7.7) Lymphocytes # (Auto) 0.8 x10^3/uL (1.0-4.8) L Monocytes # (Auto) 0.3 x10^3/uL (0.0-1.1) Eosinophils # (Auto) 0.2 x10^3/uL (0.0-0.7) Basophils # (Auto) 0.0 x10^3/uL (0.0-0.2) Prothrombin Time 13.1 SEC (11.7-14.0) Prothrombin Time INR 1.0 (0.8-1.1) Activated Partial Thromboplast Time 26 SEC (24-38) Sodium Level 141 mmol/L (136-145) Potassium Level 4.3 mmol/L (3.5-5.1) Chloride Level 104 mmol/L (98-107) Carbon Dioxide Level 25 mmol/L (21-32) Anion Gap 12 (6-14) Blood Urea Nitrogen 27 mg/dL (8-26) H Creatinine 1.3 mg/dL (0.7-1.3) Estimated GFR (Cockcroft-Gault) 75.2 Glucose Level 413 mg/dL (70-99) H Calcium Level 8.4 mg/dL (8.5-10.1) L Magnesium Level 1.7 mg/dL (1.8-2.4) L Total Bilirubin 0.2 mg/dL (0.2-1.0) Direct Bilirubin < 0.1 mg/dL (0.0-0.2) Aspartate Amino Transferase (AST) 19 U/L (15-37) Alanine Aminotransferase (ALT) 25 U/L (16-63) Alkaline Phosphatase 85 U/L (46-116) Total Protein 7.0 g/dL (6.4-8.2) Albumin 3.5 g/dL (3.4-5.0) Salicylates Level < 2.8 mg/dL (2.8-20.0) L Salicylate Last Dose Date Unknown Salicylate Last Dose Time Unknown Acetaminophen Level < 2 mcg/ml (10-30) L Acetaminophen Last Dose Date Unknown Acetaminophen Last Dose Time Unknwn Ethyl Alcohol Level < 10 mg/dL (0-10) Laboratory Tests 04/01/19 12:27 Laboratory Tests 04/01/19 12:27 EKG EKG EKG interpreted by me. EKG at 1226 showed normal sinus rhythm at rate of 95, normal QRS and QT intervals, no acute ST and T-wave elevation. Repeat EKG at 1407 showed normal sinus rhythm at rate of 77, QTC at 482 and QRS at 80, no acute ST and T-wave elevation. Radiology/Procedures Radiology/Procedures [][place] [id number] IMAGING REPORT Signed PATIENT: RASHAD KRAMER ACCOUNT: [id number] : 1980 LOCATION: ER AGE: 39 SEX: M EXAM STATUS: PRE ER ORD. PHYSICIAN: YUVAL SILVERMAN MD REASON: drug overdose PROCEDURE: PORTABLE CHEST 1V EXAM: CHEST 1 VIEW History: Drug overdose COMPARISON: None available. TECHNIQUE: Single portable radiograph of the chest FINDINGS: The cardiac silhouette is unremarkable. The lungs are clear bilaterally. The costophrenic sulci are clear and well demarcated. IMPRESSION: No radiographic evidence of an acute cardiopulmonary process. Electronically signed by: Vance Gurrola MD (04/01/2019 12:43 PM) [facility] DICTATED and SIGNED BY: VANCE GURROLA MD DATE: 04/01/[address] [id number] IMAGING REPORT Signed PATIENT: RASHAD KRAMER ACCOUNT: [id number] : 1980 LOCATION: ER AGE: 39 SEX: M EXAM STATUS: REG ER ORD. PHYSICIAN: YUVAL SILVERMAN MD REASON: drug overdose PROCEDURE: CT HEAD WO CONTRAST CT HEAD WO CONTRAST Indication: Drug overdose Exposure: One or more of the following individualized dose reduction techniques were utilized for this examination: 1. Automated exposure control 2. Adjustment of the mA and/or kV according to patient size 3. Use of iterative reconstruction technique. Technique: Standard imaging without intravenous contrast. Comparison: None FINDINGS: No acute intracranial hemorrhage, mass effect, midline shift or abnormal extra-axial fluid collection. The ventricles and sulci are symmetric. Cardenas-white matter distinction is intact. Orbits appear unremarkable. No significant scalp hematoma. Several small subcutaneous soft tissue density nodules are identified in the occipital region, for example image 1, measuring 10 x 5 mm. Fatty nodule in the left parietal scalp measuring 14 mm. The visualized sinuses are clear. No evidence of acute skull abnormality. IMPRESSION: 1. No evidence of acute intracranial hemorrhage or obvious mass effect. 2. Incidentally noted small nonspecific subcutaneous scalp nodules. Electronically signed by: Og Malone MD (04/01/2019 1:16 PM) [facility] DICTATED and SIGNED BY: OG MALONE MD DATE: 04/01/19 1315 Course & Med Decision Making Course & Med Decision Making Pertinent Labs and Imaging studies reviewed. (See chart for details) Dose of patient in ER showed 39-year-old male patient with history of psychiatric problem brought in by EMS because of intentional drug overdose. Patient had stable vital sign of pulmonary in ER. Patient had good gag reflex. Labs showed blood sugar of more than 400 without sign of DKA. Patient treated with IV fluid and insulin with decrease of blood sugar to 140.Patient requiring admission for further evaluation and treatment. Discussed with Dr. negro who is in agreement with admission. Discussed findings and plan with patient and family, who acknowledge understanding and agreement. Dragon Disclaimer Dragon Disclaimer This electronic medical record was generated, in whole or in part, using a voice recognition dictation system. Departure Departure Impression: Primary Impression: Intentional drug overdose Additional Impressions: Hyperglycemia Uncontrolled diabetes mellitus PCP abuse Hypocalcemia Disposition: ADMITTED INPATIENT (at 1244) Admitting Physician: JOES (Dr. Negro accepted admission at 1242) Condition: GUARDED Referrals: NO PCP (PCP) Critical Care Time Critical care time was 90 minutes exclusive of procedures. Problem Qualifiers Primary Impression: Intentional drug overdose Encounter type: initial encounter Qualified Codes: T50.902A - Poisoning by unspecified drugs, medicaments and biological substances, intentional self- harm, initial encounter Additional Impressions: Uncontrolled diabetes mellitus Diabetes mellitus type: other specified (including DEMETRIS) Glycemic state: with hyperglycemia Qualified Codes: E13.65 - Other specified diabetes mellitus with hyperglycemia YUVAL SILVERMAN MD Apr 01, 2019 12:46
[2019-04-01 12:51] LABS: ANION GAP 12 (6-14); BLOOD UREA NITROGEN 27 mg/dL (8-26); CALCIUM 8.4 mg/dL (8.5-10.1); CARBON DIOXIDE 25 mmol/L (21-32); CHLORIDE 104 mmol/L (98-107); CREATININE 1.3 mg/dL (0.7-1.3); GFR 75.2; GLUCOSE 413 mg/dL (70-99); POTASSIUM 4.3 mmol/L (3.5-5.1); SODIUM 141 mmol/L (136-145)
[2019-04-01 12:51] LABS: BILIRUBIN,URINE NEGATIVE (NEG); CLARITY,URINE CLEAR; COLOR,URINE YELLOW; NITRITE,URINE NEGATIVE (NEG); PROTEIN,URINE NEGATIVE (NEG-TRACE)
[2019-04-01 12:54] LABS: PROTHROMBIN TIME PATIENT 13.1 SEC (11.7-14.0)
[2019-04-01 12:55] LABS: SALIC < 2.8 mg/dL (2.8-20.0)
[2019-04-01 12:56] LABS: ACETAMIN < 2 mcg/ml (10-30); ETHANOL < 10 mg/dL (0-10)
--- NOTE | 2019-04-01 12:57 | EKG ---
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
[2019-04-01 12:59] LABS: BARBITURATES NEG (NEG); BENZODIAZEPINES NEG (NEG); CANNABINOIDS NEG (NEG); COCAINE NEG (NEG); METHADONE NEG (NEG); OPIATES NEG (NEG); PHENCYCLIDINE POS (NEG)
[2019-04-01 13:00] LABS: ALBUMIN 3.5 g/dL (3.4-5.0); ALK PHOS 85 U/L (46-116); ALT (SGPT) 25 U/L (16-63); AST (SGOT) 19 U/L (15-37); DIRECT BILIRUBIN < 0.1 mg/dL (0.0-0.2); MAGNESIUM 1.7 mg/dL (1.8-2.4); TOTAL BILIRUBIN 0.2 mg/dL (0.2-1.0)
[2019-04-01 13:01] LABS: BACTERIA,URINE 0 /HPF (0-FEW); RBC,URINE 0 /HPF (0-2); SQUAMOUS EPITHELIAL CELL,UR OCC /LPF; WBC,URINE OCC /HPF (0-4)
[2019-04-01 13:03] LABS: AMPHETAMINE/METHAMPHETAMINE NEG (NEG)
[2019-04-01] MEDS ORDERED: IV NORMAL SALINE 1000ML BAG 1,000 ML IV ONE (13:15)
[2019-04-01] MEDS ORDERED: INSULIN REGULAR 100 UNIT/ML 3ML VIAL. IV ONE (13:15)
--- NOTE | 2019-04-01 13:18 | RAD ---
CT HEAD WO CONTRAST Indication: Drug overdose Exposure: One or more of the following individualized dose reduction techniques were utilized for this examination: 1. Automated exposure control 2. Adjustment of the mA and/or kV according to patient size 3. Use of iterative reconstruction technique. Technique: Standard imaging without intravenous contrast. Comparison: None FINDINGS: No acute intracranial hemorrhage, mass effect, midline shift or abnormal extra-axial fluid collection. The ventricles and sulci are symmetric. Cardenas-white matter distinction is intact. Orbits appear unremarkable. No significant scalp hematoma. Several small subcutaneous soft tissue density nodules are identified in the occipital region, for example image 1, measuring 10 x 5 mm. Fatty nodule in the left parietal scalp measuring 14 mm. The visualized sinuses are clear. No evidence of acute skull abnormality. IMPRESSION: 1. No evidence of acute intracranial hemorrhage or obvious mass effect. 2. Incidentally noted small nonspecific subcutaneous scalp nodules. Electronically signed by: Og Malone MD (04/01/2019 1:16 PM) [facility]
[2019-04-01 13:32] LABS: BASE EXCESS ABG -4 mmol/L (-3-3); HCO3 ABG 21 mmol/L (21-28); PCO2 ABG 39 mmHg (35-46); PO2 ABG 85 mmHg (85-108); SAT O2 ABG 96 % (92-99)
[2019-04-01 13:49] LABS: FIO2 ABG 21
[2019-04-01] MEDS ORDERED: IV DEXTROSE 5% 250 ML BAG. IV PRN (14:00)
[2019-04-01] MEDS ORDERED: DEXTROSE 50% 25 GM / 50ML DISP.SYRIN. IV PRN (14:00)
--- NOTE | 2019-04-01 14:11 | EKG ---
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
[2019-04-01] MEDS: IV NORMAL SALINE 1000ML BAG 1,000 ML IV SCH ×2 (14:46→20:32)
[2019-04-01 17:45] VITALS: BP 123/86
[2019-04-01 18:15] VITALS: BP 117/77
--- NOTE | 2019-04-01 19:53 | PDOC1 ---
History and Physical Date of Admission Date of Admission DATE: 04/01/19 TIME: 19:50 Source Source: Chart review History of Present Illness History of Present Illness Mr. Meyer, is a 39 year old male admit to ICU after suicide attempt from an intentional drug overdose and altered level of consciousness. Patient was at a dentist office with drowsiness and altered level of consciousness and stated he took every 20 pills of 800 mg ibuprofen, 20 pills of trazodone and 20 pills of Zyprexa, today because of suicidal ideation and wanted to kill himself because he doesn't have any friends. he was very lethargic in ER, then able to open his eyes in ICU, but not verbal at all, not following commands According to EMS patient using PCP daily and was transferred to different medical places on March 30 and April 01 by EMS. Patient denies homicidal ideation and hallucination and states he was at [facility] with suicidal attempt about 5 years ago. Past Medical History Cardiovascular: No pertinent hx Pulmonary: No pertinent hx Psych: Depression, Schizophrenia Family History Family History: Hypertension Social History ALCOHOL: heavy Drugs: Other Current Problem List Problem List Problems Medical Problems: (1) Hyperglycemia Status: Acute (2) Hypocalcemia Status: Acute (3) Intentional drug overdose Status: Acute (4) PCP abuse Status: Acute (5) Uncontrolled diabetes mellitus Status: Acute Current Medications Current Medications Current Medications Sodium Chloride 1,000 ml @ 1,000 mls/hr Q1H IV Last administered on 04/01/19at 13:11; Start 04/01/19 at 12:26; Stop 04/01/19 at 13:25; Status DC Naloxone HCl (Narcan) 1 mg 1X ONCE IV Last administered on 04/01/19at 13:11; Start 04/01/19 at 12:30; Stop 04/01/19 at 12:31; Status DC Sodium Chloride 1,000 ml @ 1,000 mls/hr 1X ONCE IV Last administered on 04/01/19at 14:01; Start 04/01/19 at 13:15; Stop 04/01/19 at 14:14; Status DC Insulin Human Regular (HumuLIN R VIAL) 10 unit 1X ONCE IV Last administered on 04/01/19at 13:59; Start 04/01/19 at 13:15; Stop 04/01/19 at 13:16; Status DC Sodium Chloride 1,000 ml @ 150 mls/hr Q6H40M IV Last administered on 04/01/19at 14:46; Start 04/01/19 at 13:52; Stop 04/02/19 at 13:51 Dextrose (Dextrose 50%-Water Syringe) 12.5 gm PRN Q15MIN PRN IV SEE COMMENTS; Start 04/01/19 at 14:00 Dextrose 250 ml PRN Q15MIN PRN IV SEE COMMENTS; Start 04/01/19 at 14:00 Active Scripts Active Humalog (Insulin Lispro) 100 Unit/1 Ml Insuln.pen 8 Units SQ TIDAC 30 Days + Sliding scale 1u for every 50mg/dL over 150mg/dL glucose Lantus Solostar (Insulin Glargine,Hum.rec.anlog) 100 Unit/1 Ml Insuln.pen 15 Units SQ QHS 30 Days Culturelle (Lactobacillus Rhamnosus Gg) 1 Each Cap.sprink 1 Cap PO BID 5 Days Famotidine 20 Mg Tablet 20 Mg PO BID 30 Days Cephalexin 250 Mg Capsule 500 Mg PO QID 5 Days Proventil Hfa Inhaler (Albuterol Sulfate) 6.7 Gm Hfa.aer.ad 1 Puff IH PRN Q4HRS PRN 30 Days Glipizide 10 Mg Tablet 1 Tab PO BID 30 Days Metformin Hcl 1,000 Mg Tablet 1,000 Mg PO BIDWMEALS 30 Days Zyprexa (Olanzapine) 20 Mg Tablet 1 Tab PO QHS 30 Days Prozac (Fluoxetine Hcl) 40 Mg Capsule 1 Cap PO DAILY 30 Days Trazodone Hcl 150 Mg Tablet 1 Tab PO QHS 30 Days Lisinopril 10 Mg Tablet 1 Tab PO DAILY 30 Days Allergies Allergies: Coded Allergies: No Known Drug Allergies (Unverified , 03/04/19) ROS Review of System unable, he is obtunded Physical Exam General: No acute distress, Other (obtunded) HEENT: PERRLA Lungs: Clear to auscultation Extremities: No clubbing, No edema Skin: No rashes, No significant lesion Psych/Mental Status: Other (obtunded) Vitals Vitals Vital Signs Date Time Temp Pulse Resp B/P (MAP) Pulse Ox O2 Delivery O2 Flow Rate FiO2 04/01/19 18:15 71 16 117/77 (90) Room Air 04/01/19 17:45 98.4 100 98.4 Labs Labs Laboratory Tests Test 04/01/19 12:27 04/01/19 12:44 04/01/19 13:30 04/01/19 14:48 White Blood Count 6.4 x10^3/uL (4.0-11.0) Red Blood Count 5.33 x10^6/uL (4.30-5.70) Hemoglobin 13.7 g/dL (13.0-17.5) Hematocrit 41.6 % (39.0-53.0) Mean Corpuscular Volume 78 fL (79-100) Mean Corpuscular Hemoglobin 26 pg (25-35) Mean Corpuscular Hemoglobin Concent 33 g/dL (31-37) Red Cell Distribution Width 14.2 % (11.5-14.5) Platelet Count 183 x10^3/uL (140-400) Neutrophils (%) (Auto) 78 % (31-73) Lymphocytes (%) (Auto) 13 % (24-48) Monocytes (%) (Auto) 5 % (0-9) Eosinophils (%) (Auto) 4 % (0-3) Basophils (%) (Auto) 0 % (0-3) Neutrophils # (Auto) 5.0 x10^3/uL (1.8-7.7) Lymphocytes # (Auto) 0.8 x10^3/uL (1.0-4.8) Monocytes # (Auto) 0.3 x10^3/uL (0.0-1.1) Eosinophils # (Auto) 0.2 x10^3/uL (0.0-0.7) Basophils # (Auto) 0.0 x10^3/uL (0.0-0.2) Prothrombin Time 13.1 SEC (11.7-14.0) Prothromb Time International Ratio 1.0 (0.8-1.1) Activated Partial Thromboplast Time 26 SEC (24-38) Sodium Level 141 mmol/L (136-145) Potassium Level 4.3 mmol/L (3.5-5.1) Chloride Level 104 mmol/L (98-107) Carbon Dioxide Level 25 mmol/L (21-32) Anion Gap 12 (6-14) Blood Urea Nitrogen 27 mg/dL (8-26) Creatinine 1.3 mg/dL (0.7-1.3) Estimated GFR (Cockcroft-Gault) 75.2 Glucose Level 413 mg/dL (70-99) Calcium Level 8.4 mg/dL (8.5-10.1) Magnesium Level 1.7 mg/dL (1.8-2.4) Total Bilirubin 0.2 mg/dL (0.2-1.0) Direct Bilirubin < 0.1 mg/dL (0.0-0.2) Aspartate Amino Transf (AST/SGOT) 19 U/L (15-37) Alanine Aminotransferase (ALT/SGPT) 25 U/L (16-63) Alkaline Phosphatase 85 U/L (46-116) Total Protein 7.0 g/dL (6.4-8.2) Albumin 3.5 g/dL (3.4-5.0) Salicylates Level < 2.8 mg/dL (2.8-20.0) Salicylate Last Dose Date Unknown Salicylate Last Dose Time Unknown Acetaminophen Level < 2 mcg/ml (10-30) Acetaminophen Last Dose Date Unknown Acetaminophen Last Dose Time Unknwn Ethyl Alcohol Level < 10 mg/dL (0-10) Urine Collection Type Unknown Urine Color Yellow Urine Clarity Clear Urine pH 6.0 Urine Specific Malone >=1.030 Urine Protein Negative mg/dL (NEG-TRACE) Urine Glucose (UA) >=1000 mg/dL (NEG) Urine Ketones (Stick) Trace mg/dL (NEG) Urine Blood Negative (NEG) Urine Nitrite Negative (NEG) Urine Bilirubin Negative (NEG) Urine Urobilinogen Dipstick 1.0 mg/dL (0.2 mg/dL) Urine Leukocyte Esterase Negative (NEG) Urine RBC 0 /HPF (0-2) Urine WBC Occ /HPF (0-4) Urine Squamous Epithelial Cells Occ /LPF Urine Bacteria 0 /HPF (0-FEW) Urine Opiates Screen Neg (NEG) Urine Methadone Screen Neg (NEG) Urine Barbiturates Neg (NEG) Urine Phencyclidine Screen Pos (NEG) Urine Amphetamine/Methamphetamine Neg (NEG) Urine Benzodiazepines Screen Neg (NEG) Urine Cocaine Screen Neg (NEG) Urine Cannabinoids Screen Neg (NEG) Urine Ethyl Alcohol Neg (NEG) O2 Saturation 96 % (92-99) Arterial Blood pH 7.36 (7.35-7.45) Arterial Blood pCO2 at Patient Temp 39 mmHg (35-46) Arterial Blood pO2 at Patient Temp 85 mmHg (85-108) Arterial Blood HCO3 21 mmol/L (21-28) Arterial Blood Base Excess -4 mmol/L (-3-3) FiO2 21 Glucose (Fingerstick) 146 mg/dL (70-99) Test 04/01/19 17:20 Glucose (Fingerstick) 152 mg/dL (70-99) Laboratory Tests Test 04/01/19 12:27 04/01/19 12:44 04/01/19 13:30 04/01/19 14:48 White Blood Count 6.4 x10^3/uL (4.0-11.0) Red Blood Count 5.33 x10^6/uL (4.30-5.70) Hemoglobin 13.7 g/dL (13.0-17.5) Hematocrit 41.6 % (39.0-53.0) Mean Corpuscular Volume 78 fL (79-100) Mean Corpuscular Hemoglobin 26 pg (25-35) Mean Corpuscular Hemoglobin Concent 33 g/dL (31-37) Red Cell Distribution Width 14.2 % (11.5-14.5) Platelet Count 183 x10^3/uL (140-400) Neutrophils (%) (Auto) 78 % (31-73) Lymphocytes (%) (Auto) 13 % (24-48) Monocytes (%) (Auto) 5 % (0-9) Eosinophils (%) (Auto) 4 % (0-3) Basophils (%) (Auto) 0 % (0-3) Neutrophils # (Auto) 5.0 x10^3/uL (1.8-7.7) Lymphocytes # (Auto) 0.8 x10^3/uL (1.0-4.8) Monocytes # (Auto) 0.3 x10^3/uL (0.0-1.1) Eosinophils # (Auto) 0.2 x10^3/uL (0.0-0.7) Basophils # (Auto) 0.0 x10^3/uL (0.0-0.2) Prothrombin Time 13.1 SEC (11.7-14.0) Prothromb Time International Ratio 1.0 (0.8-1.1) Activated Partial Thromboplast Time 26 SEC (24-38) Sodium Level 141 mmol/L (136-145) Potassium Level 4.3 mmol/L (3.5-5.1) Chloride Level 104 mmol/L (98-107) Carbon Dioxide Level 25 mmol/L (21-32) Anion Gap 12 (6-14) Blood Urea Nitrogen 27 mg/dL (8-26) Creatinine 1.3 mg/dL (0.7-1.3) Estimated GFR (Cockcroft-Gault) 75.2 Glucose Level 413 mg/dL (70-99) Calcium Level 8.4 mg/dL (8.5-10.1) Magnesium Level 1.7 mg/dL (1.8-2.4) Total Bilirubin 0.2 mg/dL (0.2-1.0) Direct Bilirubin < 0.1 mg/dL (0.0-0.2) Aspartate Amino Transf (AST/SGOT) 19 U/L (15-37) Alanine Aminotransferase (ALT/SGPT) 25 U/L (16-63) Alkaline Phosphatase 85 U/L (46-116) Total Protein 7.0 g/dL (6.4-8.2) Albumin 3.5 g/dL (3.4-5.0) Salicylates Level < 2.8 mg/dL (2.8-20.0) Salicylate Last Dose Date Unknown Salicylate Last Dose Time Unknown Acetaminophen Level < 2 mcg/ml (10-30) Acetaminophen Last Dose Date Unknown Acetaminophen Last Dose Time Unknwn Ethyl Alcohol Level < 10 mg/dL (0-10) Urine Collection Type Unknown Urine Color Yellow Urine Clarity Clear Urine pH 6.0 Urine Specific Malone >=1.030 Urine Protein Negative mg/dL (NEG-TRACE) Urine Glucose (UA) >=1000 mg/dL (NEG) Urine Ketones (Stick) Trace mg/dL (NEG) Urine Blood Negative (NEG) Urine Nitrite Negative (NEG) Urine Bilirubin Negative (NEG) Urine Urobilinogen Dipstick 1.0 mg/dL (0.2 mg/dL) Urine Leukocyte Esterase Negative (NEG) Urine RBC 0 /HPF (0-2) Urine WBC Occ /HPF (0-4) Urine Squamous Epithelial Cells Occ /LPF Urine Bacteria 0 /HPF (0-FEW) Urine Opiates Screen Neg (NEG) Urine Methadone Screen Neg (NEG) Urine Barbiturates Neg (NEG) Urine Phencyclidine Screen Pos (NEG) Urine Amphetamine/Methamphetamine Neg (NEG) Urine Benzodiazepines Screen Neg (NEG) Urine Cocaine Screen Neg (NEG) Urine Cannabinoids Screen Neg (NEG) Urine Ethyl Alcohol Neg (NEG) O2 Saturation 96 % (92-99) Arterial Blood pH 7.36 (7.35-7.45) Arterial Blood pCO2 at Patient Temp 39 mmHg (35-46) Arterial Blood pO2 at Patient Temp 85 mmHg (85-108) Arterial Blood HCO3 21 mmol/L (21-28) Arterial Blood Base Excess -4 mmol/L (-3-3) FiO2 21 Glucose (Fingerstick) 146 mg/dL (70-99) Test 04/01/19 17:20 Glucose (Fingerstick) 152 mg/dL (70-99) VTE Prophylaxis Ordered VTE Prophylaxis Devices: No VTE Pharmacological Prophylaxi: Yes Assessment/Plan Assessment/Plan suicide attempt overdose of zyprexa, trazodone and ibuprofen amdit to ICU, risk of QT prologcation and sudden cardiac monitor renal fxn, IV fluid schizophrenia, major depression PCP abuse primary care is Dr. Lal at [facility] ICU admit, 35 min, 2 visits [place] MD Apr 01, 2019 19:53
[2019-04-01 20:00] VITALS: BP 101/68
--- NOTE | 2019-04-01 20:00 | NUR ---
unable to complete most of admission requirements d/t pt's being lethargic and only wakes up for a moment when his name is called. pt currently laying in bed, eyes closed, sitter at bedside. will continue to closely monitor.
[2019-04-01 21:00] VITALS: BP 121/77
[2019-04-01 22:00] VITALS: BP 127/70
[2019-04-01 23:00] VITALS: BP 129/78
--- NOTE | 2019-04-01 23:20 | NUR ---
pt now awake, extremely impulsive, pulling at monitoring devices, pulling gown off, attempting to leave and pulled out IV. Dr Negro paged and notified, new orders received and noted. new IV placed for new med orders. will pass on in report, will continue to closely monitor.
[2019-04-02] VITALS (7 sets, daily range): BP systolic 119–147; BP diastolic 82–90
[2019-04-02] MEDS: IV NORMAL SALINE 1000ML BAG 1,000 ML IV SCH ×2 (03:12→09:52)
[2019-04-02] MEDS: HALOPERIDOL LACTATE 5 MG/ML VIAL. IVP PRN ×3 (04:21→14:08)
--- NOTE | 2019-04-02 04:45 | NUR ---
pt slept for a few hours after one dose of PRN Ativan. then pt awoke, again very impulsive; pulling off monitors, constantly getting out of bed and out of the chair, pacing around the room, constantly asking for his personal belongings and asking staff to call various people for him. pt reoriented with no success. for pt safety d/t impulsiveness and risk of fall, monitoring devices removed and stored away from pt for suicide risk. pt denies suicidal ideation at this time, "I just wanna go home." sitter at bedside. will pass on in report, will continue to closely monitor.
--- NOTE | 2019-04-02 07:24 | NUR ---
Patient is up and walking around, requesting to leave, security called to help get patient back to bed. Patient given ativan and haldol. Patient is sexually inappropriate, wondering the unit not following redirection.
--- NOTE | 2019-04-02 07:25 | PDOC ---
PROGRESS NOTES History of Present Illness History of Present Illness VTE Prophylaxis Ordered VTE Prophylaxis Devices: No VTE Pharmacological Prophylaxi: Yes Assessment/Plan Assessment/Plan suicide attempt DM UNCONTROLLED overdose//// zyprexa, trazodone and ibuprofen needs ICU, bed\ ON CT HEAD 04/01No evidence of acute intracranial hemorrhage or obvious mass effect.Incidentally noted small nonspecific subcutaneous scalp nodules. risk of QT prologcation and sudden cardiac monitor renal fxn, 4 pt restraints NECESSARY TO PREVENT SELF HARM 04/02 attempted to leave today, running down anderson with sitter and charge nurse IV fluid support geodon 20mg im x 1 9.7 schizophrenia, major depression PCP abuse SS INSULIN A1C primary care is Dr. Lal at [facility] ICU admit, NEUROLOGY CONSULT TSH 33 min, cc time Vitals Vitals Vital Signs Date Time Temp Pulse Resp B/P (MAP) Pulse Ox O2 Delivery O2 Flow Rate FiO2 04/02/19 04:00 98.2 82 25 123/90 (101) 100 Room Air 98.2 Physical Exam Physical Exam hallucinating, wants to meet ROSALIA MCINTOSH TO HAVE HIM HELP HIM GET A JOB General: No acute distress, Other (ENCEPHALOPATHIC) Heart: Regular rate Lungs: Clear Abdomen: Normal bowel sounds, Soft, No tenderness, No hepatosplenomegaly Extremities: No clubbing, No cyanosis, No edema Skin: No rashes, No significant lesion Labs LABS CT HEAD WO CONTRAST Indication: Drug overdose Exposure: One or more of the following individualized dose reduction techniques were utilized for this examination: 1. Automated exposure control 2. Adjustment of the mA and/or kV according to patient size 3. Use of iterative reconstruction technique. Technique: Standard imaging without intravenous contrast. Comparison: None FINDINGS: No acute intracranial hemorrhage, mass effect, midline shift or abnormal extra-axial fluid collection. The ventricles and sulci are symmetric. Cardenas-white matter distinction is intact. Orbits appear unremarkable. No significant scalp hematoma. Several small subcutaneous soft tissue density nodules are identified in the occipital region, for example image 1, measuring 10 x 5 mm. Fatty nodule in the left parietal scalp measuring 14 mm. The visualized sinuses are clear. No evidence of acute skull abnormality. IMPRESSION: 1. No evidence of acute intracranial hemorrhage or obvious mass effect. 2. Incidentally noted small nonspecific subcutaneous scalp nodules. Electronically signed by: Og Malone MD (04/01/2019 1:16 PM) [facility] DICTATED and SIGNED BY: OG MALONE MD DATE: 04/01/19 9017 Laboratory Tests Test 04/01/19 12:27 04/01/19 12:44 04/01/19 13:30 04/01/19 14:48 White Blood Count 6.4 x10^3/uL (4.0-11.0) Red Blood Count 5.33 x10^6/uL (4.30-5.70) Hemoglobin 13.7 g/dL (13.0-17.5) Hematocrit 41.6 % (39.0-53.0) Mean Corpuscular Volume 78 fL (79-100) Mean Corpuscular Hemoglobin 26 pg (25-35) Mean Corpuscular Hemoglobin Concent 33 g/dL (31-37) Red Cell Distribution Width 14.2 % (11.5-14.5) Platelet Count 183 x10^3/uL (140-400) Neutrophils (%) (Auto) 78 % (31-73) Lymphocytes (%) (Auto) 13 % (24-48) Monocytes (%) (Auto) 5 % (0-9) Eosinophils (%) (Auto) 4 % (0-3) Basophils (%) (Auto) 0 % (0-3) Neutrophils # (Auto) 5.0 x10^3/uL (1.8-7.7) Lymphocytes # (Auto) 0.8 x10^3/uL (1.0-4.8) Monocytes # (Auto) 0.3 x10^3/uL (0.0-1.1) Eosinophils # (Auto) 0.2 x10^3/uL (0.0-0.7) Basophils # (Auto) 0.0 x10^3/uL (0.0-0.2) Prothrombin Time 13.1 SEC (11.7-14.0) Prothromb Time International Ratio 1.0 (0.8-1.1) Activated Partial Thromboplast Time 26 SEC (24-38) Sodium Level 141 mmol/L (136-145) Potassium Level 4.3 mmol/L (3.5-5.1) Chloride Level 104 mmol/L (98-107) Carbon Dioxide Level 25 mmol/L (21-32) Anion Gap 12 (6-14) Blood Urea Nitrogen 27 mg/dL (8-26) Creatinine 1.3 mg/dL (0.7-1.3) Estimated GFR (Cockcroft-Gault) 75.2 Glucose Level 413 mg/dL (70-99) Calcium Level 8.4 mg/dL (8.5-10.1) Magnesium Level 1.7 mg/dL (1.8-2.4) Total Bilirubin 0.2 mg/dL (0.2-1.0) Direct Bilirubin < 0.1 mg/dL (0.0-0.2) Aspartate Amino Transf (AST/SGOT) 19 U/L (15-37) Alanine Aminotransferase (ALT/SGPT) 25 U/L (16-63) Alkaline Phosphatase 85 U/L (46-116) Total Protein 7.0 g/dL (6.4-8.2) Albumin 3.5 g/dL (3.4-5.0) Salicylates Level < 2.8 mg/dL (2.8-20.0) Salicylate Last Dose Date Unknown Salicylate Last Dose Time Unknown Acetaminophen Level < 2 mcg/ml (10-30) Acetaminophen Last Dose Date Unknown Acetaminophen Last Dose Time Unknwn Ethyl Alcohol Level < 10 mg/dL (0-10) Urine Collection Type Unknown Urine Color Yellow Urine Clarity Clear Urine pH 6.0 Urine Specific [place] >=1.030 Urine Protein Negative mg/dL (NEG-TRACE) Urine Glucose (UA) >=1000 mg/dL (NEG) Urine Ketones (Stick) Trace mg/dL (NEG) Urine Blood Negative (NEG) Urine Nitrite Negative (NEG) Urine Bilirubin Negative (NEG) Urine Urobilinogen Dipstick 1.0 mg/dL (0.2 mg/dL) Urine Leukocyte Esterase Negative (NEG) Urine RBC 0 /HPF (0-2) Urine WBC Occ /HPF (0-4) Urine Squamous Epithelial Cells Occ /LPF Urine Bacteria 0 /HPF (0-FEW) Urine Opiates Screen Neg (NEG) Urine Methadone Screen Neg (NEG) Urine Barbiturates Neg (NEG) Urine Phencyclidine Screen Pos (NEG) Urine Amphetamine/Methamphetamine Neg (NEG) Urine Benzodiazepines Screen Neg (NEG) Urine Cocaine Screen Neg (NEG) Urine Cannabinoids Screen Neg (NEG) Urine Ethyl Alcohol Neg (NEG) O2 Saturation 96 % (92-99) Arterial Blood pH 7.36 (7.35-7.45) Arterial Blood pCO2 at Patient Temp 39 mmHg (35-46) Arterial Blood pO2 at Patient Temp 85 mmHg (85-108) Arterial Blood HCO3 21 mmol/L (21-28) Arterial Blood Base Excess -4 mmol/L (-3-3) FiO2 21 Glucose (Fingerstick) 146 mg/dL (70-99) Test 04/01/19 17:20 Glucose (Fingerstick) 152 mg/dL (70-99) Assessment and Plan Assessmemt and Plan Problems Medical Problems: (1) Hyperglycemia Status: Acute (2) Hypocalcemia Status: Acute (3) Intentional drug overdose Status: Acute (4) PCP abuse Status: Acute (5) Uncontrolled diabetes mellitus Status: Acute Comment Review of Relevant I have reviewed the following items becki (where applicable) has been applied. Labs Laboratory Tests Test 04/01/19 12:27 04/01/19 12:44 04/01/19 13:30 04/01/19 14:48 White Blood Count 6.4 x10^3/uL (4.0-11.0) Red Blood Count 5.33 x10^6/uL (4.30-5.70) Hemoglobin 13.7 g/dL (13.0-17.5) Hematocrit 41.6 % (39.0-53.0) Mean Corpuscular Volume 78 fL (79-100) Mean Corpuscular Hemoglobin 26 pg (25-35) Mean Corpuscular Hemoglobin Concent 33 g/dL (31-37) Red Cell Distribution Width 14.2 % (11.5-14.5) Platelet Count 183 x10^3/uL (140-400) Neutrophils (%) (Auto) 78 % (31-73) Lymphocytes (%) (Auto) 13 % (24-48) Monocytes (%) (Auto) 5 % (0-9) Eosinophils (%) (Auto) 4 % (0-3) Basophils (%) (Auto) 0 % (0-3) Neutrophils # (Auto) 5.0 x10^3/uL (1.8-7.7) Lymphocytes # (Auto) 0.8 x10^3/uL (1.0-4.8) Monocytes # (Auto) 0.3 x10^3/uL (0.0-1.1) Eosinophils # (Auto) 0.2 x10^3/uL (0.0-0.7) Basophils # (Auto) 0.0 x10^3/uL (0.0-0.2) Prothrombin Time 13.1 SEC (11.7-14.0) Prothromb Time International Ratio 1.0 (0.8-1.1) Activated Partial Thromboplast Time 26 SEC (24-38) Sodium Level 141 mmol/L (136-145) Potassium Level 4.3 mmol/L (3.5-5.1) Chloride Level 104 mmol/L (98-107) Carbon Dioxide Level 25 mmol/L (21-32) Anion Gap 12 (6-14) Blood Urea Nitrogen 27 mg/dL (8-26) Creatinine 1.3 mg/dL (0.7-1.3) Estimated GFR (Cockcroft-Gault) 75.2 Glucose Level 413 mg/dL (70-99) Calcium Level 8.4 mg/dL (8.5-10.1) Magnesium Level 1.7 mg/dL (1.8-2.4) Total Bilirubin 0.2 mg/dL (0.2-1.0) Direct Bilirubin < 0.1 mg/dL (0.0-0.2) Aspartate Amino Transf (AST/SGOT) 19 U/L (15-37) Alanine Aminotransferase (ALT/SGPT) 25 U/L (16-63) Alkaline Phosphatase 85 U/L (46-116) Total Protein 7.0 g/dL (6.4-8.2) Albumin 3.5 g/dL (3.4-5.0) Salicylates Level < 2.8 mg/dL (2.8-20.0) Salicylate Last Dose Date Unknown Salicylate Last Dose Time Unknown Acetaminophen Level < 2 mcg/ml (10-30) Acetaminophen Last Dose Date Unknown Acetaminophen Last Dose Time Unknwn Ethyl Alcohol Level < 10 mg/dL (0-10) Urine Collection Type Unknown Urine Color Yellow Urine Clarity Clear Urine pH 6.0 Urine Specific [place] >=1.030 Urine Protein Negative mg/dL (NEG-TRACE) Urine Glucose (UA) >=1000 mg/dL (NEG) Urine Ketones (Stick) Trace mg/dL (NEG) Urine Blood Negative (NEG) Urine Nitrite Negative (NEG) Urine Bilirubin Negative (NEG) Urine Urobilinogen Dipstick 1.0 mg/dL (0.2 mg/dL) Urine Leukocyte Esterase Negative (NEG) Urine RBC 0 /HPF (0-2) Urine WBC Occ /HPF (0-4) Urine Squamous Epithelial Cells Occ /LPF Urine Bacteria 0 /HPF (0-FEW) Urine Opiates Screen Neg (NEG) Urine Methadone Screen Neg (NEG) Urine Barbiturates Neg (NEG) Urine Phencyclidine Screen Pos (NEG) Urine Amphetamine/Methamphetamine Neg (NEG) Urine Benzodiazepines Screen Neg (NEG) Urine Cocaine Screen Neg (NEG) Urine Cannabinoids Screen Neg (NEG) Urine Ethyl Alcohol Neg (NEG) O2 Saturation 96 % (92-99) Arterial Blood pH 7.36 (7.35-7.45) Arterial Blood pCO2 at Patient Temp 39 mmHg (35-46) Arterial Blood pO2 at Patient Temp 85 mmHg (85-108) Arterial Blood HCO3 21 mmol/L (21-28) Arterial Blood Base Excess -4 mmol/L (-3-3) FiO2 21 Glucose (Fingerstick) 146 mg/dL (70-99) Test 04/01/19 17:20 Glucose (Fingerstick) 152 mg/dL (70-99) Laboratory Tests Test 04/01/19 12:27 04/01/19 12:44 04/01/19 13:30 04/01/19 14:48 White Blood Count 6.4 x10^3/uL (4.0-11.0) Red Blood Count 5.33 x10^6/uL (4.30-5.70) Hemoglobin 13.7 g/dL (13.0-17.5) Hematocrit 41.6 % (39.0-53.0) Mean Corpuscular Volume 78 fL (79-100) Mean Corpuscular Hemoglobin 26 pg (25-35) Mean Corpuscular Hemoglobin Concent 33 g/dL (31-37) Red Cell Distribution Width 14.2 % (11.5-14.5) Platelet Count 183 x10^3/uL (140-400) Neutrophils (%) (Auto) 78 % (31-73) Lymphocytes (%) (Auto) 13 % (24-48) Monocytes (%) (Auto) 5 % (0-9) Eosinophils (%) (Auto) 4 % (0-3) Basophils (%) (Auto) 0 % (0-3) Neutrophils # (Auto) 5.0 x10^3/uL (1.8-7.7) Lymphocytes # (Auto) 0.8 x10^3/uL (1.0-4.8) Monocytes # (Auto) 0.3 x10^3/uL (0.0-1.1) Eosinophils # (Auto) 0.2 x10^3/uL (0.0-0.7) Basophils # (Auto) 0.0 x10^3/uL (0.0-0.2) Prothrombin Time 13.1 SEC (11.7-14.0) Prothromb Time International Ratio 1.0 (0.8-1.1) Activated Partial Thromboplast Time 26 SEC (24-38) Sodium Level 141 mmol/L (136-145) Potassium Level 4.3 mmol/L (3.5-5.1) Chloride Level 104 mmol/L (98-107) Carbon Dioxide Level 25 mmol/L (21-32) Anion Gap 12 (6-14) Blood Urea Nitrogen 27 mg/dL (8-26) Creatinine 1.3 mg/dL (0.7-1.3) Estimated GFR (Cockcroft-Gault) 75.2 Glucose Level 413 mg/dL (70-99) Calcium Level 8.4 mg/dL (8.5-10.1) Magnesium Level 1.7 mg/dL (1.8-2.4) Total Bilirubin 0.2 mg/dL (0.2-1.0) Direct Bilirubin < 0.1 mg/dL (0.0-0.2) Aspartate Amino Transf (AST/SGOT) 19 U/L (15-37) Alanine Aminotransferase (ALT/SGPT) 25 U/L (16-63) Alkaline Phosphatase 85 U/L (46-116) Total Protein 7.0 g/dL (6.4-8.2) Albumin 3.5 g/dL (3.4-5.0) Salicylates Level < 2.8 mg/dL (2.8-20.0) Salicylate Last Dose Date Unknown Salicylate Last Dose Time Unknown Acetaminophen Level < 2 mcg/ml (10-30) Acetaminophen Last Dose Date Unknown Acetaminophen Last Dose Time Unknwn Ethyl Alcohol Level < 10 mg/dL (0-10) Urine Collection Type Unknown Urine Color Yellow Urine Clarity Clear Urine pH 6.0 Urine Specific [place] >=1.030 Urine Protein Negative mg/dL (NEG-TRACE) Urine Glucose (UA) >=1000 mg/dL (NEG) Urine Ketones (Stick) Trace mg/dL (NEG) Urine Blood Negative (NEG) Urine Nitrite Negative (NEG) Urine Bilirubin Negative (NEG) Urine Urobilinogen Dipstick 1.0 mg/dL (0.2 mg/dL) Urine Leukocyte Esterase Negative (NEG) Urine RBC 0 /HPF (0-2) Urine WBC Occ /HPF (0-4) Urine Squamous Epithelial Cells Occ /LPF Urine Bacteria 0 /HPF (0-FEW) Urine Opiates Screen Neg (NEG) Urine Methadone Screen Neg (NEG) Urine Barbiturates Neg (NEG) Urine Phencyclidine Screen Pos (NEG) Urine Amphetamine/Methamphetamine Neg (NEG) Urine Benzodiazepines Screen Neg (NEG) Urine Cocaine Screen Neg (NEG) Urine Cannabinoids Screen Neg (NEG) Urine Ethyl Alcohol Neg (NEG) O2 Saturation 96 % (92-99) Arterial Blood pH 7.36 (7.35-7.45) Arterial Blood pCO2 at Patient Temp 39 mmHg (35-46) Arterial Blood pO2 at Patient Temp 85 mmHg (85-108) Arterial Blood HCO3 21 mmol/L (21-28) Arterial Blood Base Excess -4 mmol/L (-3-3) FiO2 21 Glucose (Fingerstick) 146 mg/dL (70-99) Test 04/01/19 17:20 Glucose (Fingerstick) 152 mg/dL (70-99) Medications Current Medications Sodium Chloride 1,000 ml @ 1,000 mls/hr Q1H IV Last administered on 04/01/19at 13:11; Start 04/01/19 at 12:26; Stop 04/01/19 at 13:25; Status DC Naloxone HCl (Narcan) 1 mg 1X ONCE IV Last administered on 04/01/19at 13:11; Start 04/01/19 at 12:30; Stop 04/01/19 at 12:31; Status DC Sodium Chloride 1,000 ml @ 1,000 mls/hr 1X ONCE IV Last administered on 04/01/19at 14:01; Start 04/01/19 at 13:15; Stop 04/01/19 at 14:14; Status DC Insulin Human Regular (HumuLIN R VIAL) 10 unit 1X ONCE IV Last administered on 04/01/19at 13:59; Start 04/01/19 at 13:15; Stop 04/01/19 at 13:16; Status DC Sodium Chloride 1,000 ml @ 150 mls/hr Q6H40M IV Last administered on 04/02/19at 04:08; Start 04/01/19 at 13:52; Stop 04/02/19 at 13:51 Dextrose (Dextrose 50%-Water Syringe) 12.5 gm PRN Q15MIN PRN IV SEE COMMENTS; Start 04/01/19 at 14:00 Dextrose 250 ml PRN Q15MIN PRN IV SEE COMMENTS; Start 04/01/19 at 14:00 Lorazepam (Ativan Inj) 2 mg PRN Q2HR PRN IV ANXIETY / AGITATION Last administered on 04/02/19at 07:15; Start 04/01/19 at 23:30 Haloperidol Lactate (Haldol Inj) 5 mg PRN Q2HR PRN IVP AGITATION Last administered on 04/02/19at 07:15; Start 04/01/19 at 23:30 Active Scripts Active Humalog (Insulin Lispro) 100 Unit/1 Ml Insuln.pen 8 Units SQ TIDAC 30 Days + Sliding scale 1u for every 50mg/dL over 150mg/dL glucose Lantus Solostar (Insulin Glargine,Hum.rec.anlog) 100 Unit/1 Ml Insuln.pen 15 Units SQ QHS 30 Days Culturelle (Lactobacillus Rhamnosus Gg) 1 Each Cap.sprink 1 Cap PO BID 5 Days Famotidine 20 Mg Tablet 20 Mg PO BID 30 Days Cephalexin 250 Mg Capsule 500 Mg PO QID 5 Days Proventil Hfa Inhaler (Albuterol Sulfate) 6.7 Gm Hfa.aer.ad 1 Puff IH PRN Q4HRS PRN 30 Days Glipizide 10 Mg Tablet 1 Tab PO BID 30 Days Metformin Hcl 1,000 Mg Tablet 1,000 Mg PO BIDWMEALS 30 Days Zyprexa (Olanzapine) 20 Mg Tablet 1 Tab PO QHS 30 Days Prozac (Fluoxetine Hcl) 40 Mg Capsule 1 Cap PO DAILY 30 Days Trazodone Hcl 150 Mg Tablet 1 Tab PO QHS 30 Days Lisinopril 10 Mg Tablet 1 Tab PO DAILY 30 Days Vitals/I & O Vital Sign - Last 24 Hours 04/01/19 04/01/19 04/01/19 04/01/19 12:19 13:09 13:39 14:09 Temp 98.1 98.1 Pulse 99 82 78 76 Resp 17 16 B/P (MAP) 139/90 (106) 140/83 (102) 111/81 (91) 127/77 (94) Pulse Ox 100 100 100 100 O2 Delivery Room Air Room Air Room Air Room Air 04/01/19 04/01/19 04/01/19 04/01/19 14:39 15:09 15:24 16:00 Pulse 76 81 80 82 B/P (MAP) 112/72 (85) 119/84 (96) 124/80 (95) 119/85 (96) Pulse Ox 100 100 100 100 O2 Delivery Room Air Room Air Room Air Room Air 04/01/19 04/01/19 04/01/19 04/01/19 16:30 17:00 17:30 17:45 Temp 98.4 98.4 Pulse 70 68 66 62 Resp 16 16 16 B/P (MAP) 107/74 (85) 109/61 (77) 105/60 (75) 123/86 (98) Pulse Ox 100 100 100 100 O2 Delivery Room Air Room Air Room Air 04/01/19 04/01/19 04/01/19 04/01/19 18:00 18:15 20:00 21:00 Pulse 71 72 70 Resp 16 12 10 B/P (MAP) 117/77 (90) 101/68 (79) 121/77 (92) Pulse Ox 100 100 O2 Delivery Room Air Room Air Room Air Room Air 04/01/19 04/01/19 04/02/19 04/02/19 22:00 23:00 00:00 01:00 Temp 98.2 98.2 Pulse 75 78 63 70 Resp 10 22 13 12 B/P (MAP) 127/70 (89) 129/78 (95) 123/84 (97) 119/82 (94) Pulse Ox 100 O2 Delivery Room Air Room Air Room Air Room Air 04/02/19 04/02/19 04/02/19 02:00 03:00 04:00 Temp 98.2 98.2 Pulse 69 84 82 Resp 10 16 25 B/P (MAP) 147/87 (107) 119/82 (94) 123/90 (101) Pulse Ox 100 O2 Delivery Room Air Room Air Room Air Intake and Output 04/01/19 04/01/19 04/02/19 15:00 23:00 07:00 Intake Total 2000 ml 300 ml 1290.6 ml Output Total 0 ml 1375 ml Balance 2000 ml 300 ml -84.4 ml BERRY ROA MD Apr 02, 2019 07:25
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
--- NOTE | 2019-04-02 09:00 | NUR ---
Patient is refusing CHG bath, vital signs, Nozin. Addendum: 04/02/19 at 1516 by KALEN VIVEROS RN Amended: Links added.
[2019-04-02] MEDS ORDERED: IV DEXTROSE 5% 250 ML BAG. IV PRN (09:15)
[2019-04-02] MEDS ORDERED: DEXTROSE 50% 25 GM / 50ML DISP.SYRIN. IV PRN (09:15)
--- NOTE | 2019-04-02 10:05 | NUR ---
Patient is yelling out of the room, patient is asking female sitter for "sex, hugs", she repeated tells the patient that he is not being appropriate. Patient is asking for phone to call "someone". Patient is going to be seen by PAT team.
[2019-04-02] MEDS ORDERED: ZIPRASIDONE IM 20 MG VIAL. IM ONE (10:15)
--- NOTE | 2019-04-02 10:15 | NUR ---
Pt is now restrained in 4 point restraints by security. Pt has been confused, unable to reorient or redirect. Pt did leave unit with sitter and this nurse following attempting to redirect. Pt is alert but confused, he ate 100% of breakfast, and drank his juice and water. Toileting needs meet, he urinated into the urinal. Wrist and ankle restraints applied correctly by security staff with 1 finger able to get between pt arm and restraint. Skin integrity intact. Pt is able to turn self and move self in bed. Dr. Negro here to face to face assessment and orders received.
--- NOTE | 2019-04-02 12:04 | NUR ---
PAT team sales representatives here to assess pt.
[2019-04-02] MEDS: INSULIN LISPRO 300 UNITS/3 ML VIAL. SQ SCH ×2 (13:01→17:41)
[2019-04-02] MEDS ORDERED: OLANZapine IM 10 MG VIAL. IM ONE (15:30)
--- NOTE | 2019-04-02 16:30 | NUR ---
Per phone conversation with Dr. Swift, patient is able to be transferred to medical floor as long as he has a sitter and is in restraints.
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
--- NOTE | 2019-04-02 18:26 | NUR ---
Pt. ripped off wrist restraints. This nurse unable to get restraints back on pt. Pt. BUE skin intact. Pt. physically calm but verbally inappropriate at this time. Pt. stating "you know I love you". Pt. puckering lips and blowing kisses to this nurse. Pt. states "you have to kiss me before you leave". Pt. asked to stop. Pt. informed that these statements are inappropriate and unacceptable. Will continue to do 15minute checks. Will continue to monitor pt.
[2019-04-02] MEDS ORDERED: OLANZapine IM 10 MG VIAL. IM PRN (19:15)
[2019-04-02] MEDS ORDERED: INSULIN GLARGINE SYRINGE. SQ SCH (21:00)
[2019-04-03] VITALS: BP 119/80
[2019-04-03 04:00] VITALS: BP 116/89
[2019-04-03 08:12] VITALS: BP 123/90
[2019-04-03] MEDS: INSULIN LISPRO 300 UNITS/3 ML VIAL. SQ SCH ×2 (09:11→13:04)
[2019-04-03 11:41] VITALS: BP 128/92
--- NOTE | 2019-04-03 11:41 | PDOC ---
PROGRESS NOTES Chief Complaint Chief Complaint Assessment/Plan DM UNCONTROLLED overdose//// zyprexa, trazodone and ibuprofen with PCP - was initially in ICU on 4 point restraints, risk of QT prologcation and sudden cardiac . ON CT HEAD 04/01No evidence of acute intracranial hemorrhage or obvious mass effect.Incidentally noted small nonspecific subcutaneous scalp nodules. History of Present Illness History of Present Illness Mr Meyer is a 39yo AAM w/ PMH significant for DM2 and polysubstance abuse presents w/ AMS. Patient states he was discharged from [facility] 03/03 and from here on 03/07/2019 to inpatient psych at [place]. Positive for PCP this admit and prior admit. Mag level 1.7. Blood glucose in the 400s. Did initially require restraints and 1-1 due to his psychosis likely 2/2 PCP intoxication. 04/02 attempted to leave today, running down anderson with sitter and charge nurse Today he notes he had invega sustenna on Thursday and he is very alert. He tells me he made a mistake and took angeldust, does not remember much about the last day. He notes he needs his keys to his apartment. Denies any suicidal ideation or homicidal ideation Seen by PAT team, ok for d/c with plan to f/u at [facility]. No CP or SOB. Glucose controlled Vitals Vitals Vital Signs Date Time Temp Pulse Resp B/P (MAP) Pulse Ox O2 Delivery O2 Flow Rate FiO2 04/03/19 08:12 98.9 88 12 123/90 (101) 99 Room Air 98.9 Physical Exam General: Alert, Oriented X3, Cooperative, No acute distress, Other (ENCEPHALOPATHIC) Heart: Regular rate Lungs: Clear Abdomen: Normal bowel sounds, Soft, No tenderness, No hepatosplenomegaly Extremities: No clubbing, No cyanosis, No edema Skin: No rashes, No significant lesion Labs LABS Laboratory Tests Test 04/02/19 12:50 04/02/19 17:22 04/03/19 08:08 Glucose (Fingerstick) 250 mg/dL (70-99) 260 mg/dL (70-99) 243 mg/dL (70-99) Assessment and Plan Assessmemt and Plan Problems Medical Problems: (1) Hyperglycemia Status: Acute (2) Hypocalcemia Status: Acute (3) Intentional drug overdose Status: Acute (4) PCP abuse Status: Acute (5) Uncontrolled diabetes mellitus Status: Acute Comment Review of Relevant I have reviewed the following items becki (where applicable) has been applied. Labs Laboratory Tests Test 04/01/19 12:27 04/01/19 12:44 04/01/19 13:30 04/01/19 14:48 White Blood Count 6.4 x10^3/uL (4.0-11.0) Red Blood Count 5.33 x10^6/uL (4.30-5.70) Hemoglobin 13.7 g/dL (13.0-17.5) Hematocrit 41.6 % (39.0-53.0) Mean Corpuscular Volume 78 fL (79-100) Mean Corpuscular Hemoglobin 26 pg (25-35) Mean Corpuscular Hemoglobin Concent 33 g/dL (31-37) Red Cell Distribution Width 14.2 % (11.5-14.5) Platelet Count 183 x10^3/uL (140-400) Neutrophils (%) (Auto) 78 % (31-73) Lymphocytes (%) (Auto) 13 % (24-48) Monocytes (%) (Auto) 5 % (0-9) Eosinophils (%) (Auto) 4 % (0-3) Basophils (%) (Auto) 0 % (0-3) Neutrophils # (Auto) 5.0 x10^3/uL (1.8-7.7) Lymphocytes # (Auto) 0.8 x10^3/uL (1.0-4.8) Monocytes # (Auto) 0.3 x10^3/uL (0.0-1.1) Eosinophils # (Auto) 0.2 x10^3/uL (0.0-0.7) Basophils # (Auto) 0.0 x10^3/uL (0.0-0.2) Prothrombin Time 13.1 SEC (11.7-14.0) Prothromb Time International Ratio 1.0 (0.8-1.1) Activated Partial Thromboplast Time 26 SEC (24-38) Sodium Level 141 mmol/L (136-145) Potassium Level 4.3 mmol/L (3.5-5.1) Chloride Level 104 mmol/L (98-107) Carbon Dioxide Level 25 mmol/L (21-32) Anion Gap 12 (6-14) Blood Urea Nitrogen 27 mg/dL (8-26) Creatinine 1.3 mg/dL (0.7-1.3) Estimated GFR (Cockcroft-Gault) 75.2 Glucose Level 413 mg/dL (70-99) Calcium Level 8.4 mg/dL (8.5-10.1) Magnesium Level 1.7 mg/dL (1.8-2.4) Total Bilirubin 0.2 mg/dL (0.2-1.0) Direct Bilirubin < 0.1 mg/dL (0.0-0.2) Aspartate Amino Transf (AST/SGOT) 19 U/L (15-37) Alanine Aminotransferase (ALT/SGPT) 25 U/L (16-63) Alkaline Phosphatase 85 U/L (46-116) Total Protein 7.0 g/dL (6.4-8.2) Albumin 3.5 g/dL (3.4-5.0) Salicylates Level < 2.8 mg/dL (2.8-20.0) Salicylate Last Dose Date Unknown Salicylate Last Dose Time Unknown Acetaminophen Level < 2 mcg/ml (10-30) Acetaminophen Last Dose Date Unknown Acetaminophen Last Dose Time Unknwn Ethyl Alcohol Level < 10 mg/dL (0-10) Urine Collection Type Unknown Urine Color Yellow Urine Clarity Clear Urine pH 6.0 Urine Specific [place] >=1.030 Urine Protein Negative mg/dL (NEG-TRACE) Urine Glucose (UA) >=1000 mg/dL (NEG) Urine Ketones (Stick) Trace mg/dL (NEG) Urine Blood Negative (NEG) Urine Nitrite Negative (NEG) Urine Bilirubin Negative (NEG) Urine Urobilinogen Dipstick 1.0 mg/dL (0.2 mg/dL) Urine Leukocyte Esterase Negative (NEG) Urine RBC 0 /HPF (0-2) Urine WBC Occ /HPF (0-4) Urine Squamous Epithelial Cells Occ /LPF Urine Bacteria 0 /HPF (0-FEW) Urine Opiates Screen Neg (NEG) Urine Methadone Screen Neg (NEG) Urine Barbiturates Neg (NEG) Urine Phencyclidine Screen Pos (NEG) Urine Amphetamine/Methamphetamine Neg (NEG) Urine Benzodiazepines Screen Neg (NEG) Urine Cocaine Screen Neg (NEG) Urine Cannabinoids Screen Neg (NEG) Urine Ethyl Alcohol Neg (NEG) O2 Saturation 96 % (92-99) Arterial Blood pH 7.36 (7.35-7.45) Arterial Blood pCO2 at Patient Temp 39 mmHg (35-46) Arterial Blood pO2 at Patient Temp 85 mmHg (85-108) Arterial Blood HCO3 21 mmol/L (21-28) Arterial Blood Base Excess -4 mmol/L (-3-3) FiO2 21 Glucose (Fingerstick) 146 mg/dL (70-99) Test 04/01/19 17:20 04/01/19 21:30 04/02/19 07:51 04/02/19 12:50 Glucose (Fingerstick) 152 mg/dL (70-99) 223 mg/dL (70-99) 250 mg/dL (70-99) Nasal Screen MRSA (PCR) Negative (Negative) Test 04/02/19 17:22 04/03/19 08:08 Glucose (Fingerstick) 260 mg/dL (70-99) 243 mg/dL (70-99) Laboratory Tests Test 04/02/19 12:50 04/02/19 17:22 04/03/19 08:08 Glucose (Fingerstick) 250 mg/dL (70-99) 260 mg/dL (70-99) 243 mg/dL (70-99) Medications Current Medications Sodium Chloride 1,000 ml @ 1,000 mls/hr Q1H IV Last administered on 04/01/19at 13:11; Start 04/01/19 at 12:26; Stop 04/01/19 at 13:25; Status DC Naloxone HCl (Narcan) 1 mg 1X ONCE IV Last administered on 04/01/19at 13:11; Start 04/01/19 at 12:30; Stop 04/01/19 at 12:31; Status DC Sodium Chloride 1,000 ml @ 1,000 mls/hr 1X ONCE IV Last administered on 04/01/19at 14:01; Start 04/01/19 at 13:15; Stop 04/01/19 at 14:14; Status DC Insulin Human Regular (HumuLIN R VIAL) 10 unit 1X ONCE IV Last administered on 04/01/19at 13:59; Start 04/01/19 at 13:15; Stop 04/01/19 at 13:16; Status DC Sodium Chloride 1,000 ml @ 150 mls/hr Q6H40M IV Last administered on 04/02/19at 04:08; Start 04/01/19 at 13:52; Stop 04/02/19 at 13:51; Status DC Dextrose (Dextrose 50%-Water Syringe) 12.5 gm PRN Q15MIN PRN IV SEE COMMENTS; Start 04/01/19 at 14:00; Stop 04/02/19 at 14:07; Status DC Dextrose 250 ml PRN Q15MIN PRN IV SEE COMMENTS; Start 04/01/19 at 14:00; Stop 04/02/19 at 14:07; Status DC Lorazepam (Ativan Inj) 2 mg PRN Q2HR PRN IV ANXIETY Last administered on 04/03/19at 04:50; Start 04/01/19 at 23:30 Haloperidol Lactate (Haldol Inj) 5 mg PRN Q2HR PRN IVP AGITATION Last administered on 04/02/19at 14:08; Start 04/01/19 at 23:30 Lorazepam (Ativan Inj) 4 mg 1X ONCE IV Last administered on 04/02/19at 09:12; Start 04/02/19 at 09:00; Stop 04/02/19 at 09:01; Status DC Insulin Glargine (Lantus Syringe) 10 unit QHS SQ Last administered on 04/02/19at 23:02; Start 04/02/19 at 21:00 Insulin Human Lispro (HumaLOG) 0-7 UNITS TIDWMEALS SQ Last administered on 04/03/19at 09:11; Start 04/02/19 at 12:00 Dextrose (Dextrose 50%-Water Syringe) 12.5 gm PRN Q15MIN PRN IV SEE COMMENTS; Start 04/02/19 at 09:15 Dextrose 250 ml PRN Q15MIN PRN IV SEE COMMENTS; Start 04/02/19 at 09:15 Ziprasidone (Geodon Im) 20 mg 1X ONCE IM Last administered on 04/02/19at 10:33; Start 04/02/19 at 10:15; Stop 04/02/19 at 10:16; Status DC Olanzapine (ZyPREXA IM) 10 mg 1X ONCE IM Last administered on 04/02/19at 15:32; Start 04/02/19 at 15:30; Stop 04/02/19 at 15:31; Status DC Olanzapine (ZyPREXA IM) 10 mg PRN Q6HRS PRN IM ANXIETY / AGITATION Last administered on 04/02/19at 22:49; Start 04/02/19 at 19:15 Active Scripts Active Humalog (Insulin Lispro) 100 Unit/1 Ml Insuln.pen 8 Units SQ TIDAC 30 Days + Sliding scale 1u for every 50mg/dL over 150mg/dL glucose Lantus Solostar (Insulin Glargine,Hum.rec.anlog) 100 Unit/1 Ml Insuln.pen 15 Units SQ QHS 30 Days Culturelle (Lactobacillus Rhamnosus Gg) 1 Each Cap.sprink 1 Cap PO BID 5 Days Famotidine 20 Mg Tablet 20 Mg PO BID 30 Days Cephalexin 250 Mg Capsule 500 Mg PO QID 5 Days Proventil Hfa Inhaler (Albuterol Sulfate) 6.7 Gm Hfa.aer.ad 1 Puff IH PRN Q4HRS PRN 30 Days Glipizide 10 Mg Tablet 1 Tab PO BID 30 Days Metformin Hcl 1,000 Mg Tablet 1,000 Mg PO BIDWMEALS 30 Days Zyprexa (Olanzapine) 20 Mg Tablet 1 Tab PO QHS 30 Days Prozac (Fluoxetine Hcl) 40 Mg Capsule 1 Cap PO DAILY 30 Days Trazodone Hcl 150 Mg Tablet 1 Tab PO QHS 30 Days Lisinopril 10 Mg Tablet 1 Tab PO DAILY 30 Days Vitals/I & O Vital Sign - Last 24 Hours 04/02/19 04/02/19 04/02/19 04/02/19 12:00 13:20 16:00 17:20 O2 Delivery Room Air Room Air Room Air Room Air 04/02/19 04/02/19 04/03/19 04/03/19 20:00 20:00 00:00 04:00 Temp 97.5 99.3 98.7 97.5 99.3 98.7 Pulse 84 87 89 Resp 16 12 12 B/P (MAP) 131/86 (101) 119/80 (93) 116/89 (98) Pulse Ox 99 98 100 O2 Delivery Room Air Room Air Room Air 04/03/19 04/03/19 07:42 08:12 Temp 98.9 98.9 Pulse 88 Resp 16 12 B/P (MAP) 123/90 (101) Pulse Ox 99 O2 Delivery Room Air Intake and Output 04/02/19 04/02/1919 15:00 23:00 07:00 Intake Total 960 ml 708 ml 400 ml Output Total 2000 ml 950 ml 1375 ml Balance -1040 ml -242 ml -975 ml KATIUSKA RIGGS MD Apr 03, 2019 11:41
--- NOTE | 2019-04-03 14:11 | PDOC3 ---
Discharge Summary Visit Information Date of Admission: Apr 01, 2019 Date of Discharge: Apr 03, 2019 Admitting Diagnosis: Acute pcp induced psychosis Final Diagnosis Problems Medical Problems: (1) Hyperglycemia Status: Acute (2) Hypocalcemia Status: Acute (3) Intentional drug overdose Status: Acute (4) PCP abuse Status: Acute (5) Uncontrolled diabetes mellitus Status: Acute Brief Hospital Course Allergies Allergies Coded Allergies Type Severity Reaction Last Updated Verified No Known Drug Allergies 03/04/19 No Vital Signs Vital Signs Date Time Temp Pulse Resp B/P (MAP) Pulse Ox O2 Delivery O2 Flow Rate FiO2 04/03/19 11:41 98.5 105 18 128/92 (104) 100 Room Air 98.5 Lab Results Laboratory Tests Test 04/01/19 14:48 04/01/19 17:20 04/01/19 21:30 04/02/19 07:51 Glucose (Fingerstick) 146 mg/dL (70-99) 152 mg/dL (70-99) 223 mg/dL (70-99) Nasal Screen MRSA (PCR) Negative (Negative) Test 04/02/19 12:50 04/02/19 17:22 04/03/19 08:08 04/03/19 11:39 Glucose (Fingerstick) 250 mg/dL (70-99) 260 mg/dL (70-99) 243 mg/dL (70-99) 228 mg/dL (70-99) Laboratory Tests Test 04/02/19 17:22 04/03/19 08:08 04/03/19 11:39 Glucose (Fingerstick) 260 mg/dL (70-99) 243 mg/dL (70-99) 228 mg/dL (70-99) Brief Hospital Course Mr Meyer is a 39yo AAM w/ PMH significant for DM2 and polysubstance abuse presents w/ AMS. Patient states he was discharged from [facility] 03/03 and from here on 03/07/2019 to inpatient psych at [place]. Positive for PCP this admit and prior admit. Mag level 1.7. Blood glucose in the 400s. Did initially require restraints and 1-1 due to his psychosis likely 2/2 PCP intoxication. 04/02 attempted to leave today, running down anderson with sitter and charge nurse Today he notes he had invega sustenna on Thursday and he is very alert. He tells me he made a mistake and took angeldust, does not remember much about the last day. He notes he needs his keys to his apartment. Denies any suicidal ideation or homicidal ideation Seen by PAT team, ok for d/c with plan to f/u at [facility]. No CP or SOB. Glucose controlled DM UNCONTROLLED overdose//// zyprexa, trazodone and ibuprofen with PCP - was initially in ICU on 4 point restraints, risk of QT prologcation and sudden cardiac . ON CT HEAD 04/01No evidence of acute intracranial hemorrhage or obvious mass effect.Incidentally noted small nonspecific subcutaneous scalp nodules. PCP induced psychosis Greater than 30 minutes spent on d/c Discharge Information Condition at Discharge: Improved Follow Up: Weeks (1) Disposition/Orders: D/C to Home Scheduled Famotidine (Famotidine) 20 Mg Tablet, 20 MG PO BID for GERD for 30 Days, #60 Prescribed by: KATIUSKA RIGGS MD on 03/06/19 1132 Fluoxetine Hcl (Prozac) 40 Mg Capsule, 1 CAP PO DAILY for MOOD for 30 Days, #30 Ref 0 Prescribed by: KATIUSKA RIGGS MD on 03/06/19 1132 Glipizide (Glipizide) 10 Mg Tablet, 1 TAB PO BID for DM II for 30 Days, #60 Ref 5 Prescribed by: KATIUSKA RIGGS MD on 03/06/19 1132 Insulin Glargine,Hum.rec.anlog (Lantus Solostar) 100 Unit/1 Ml Insuln.pen, 15 UNITS SQ QHS for DM2 for 30 Days, #1 Prescribed by: KATIUSKA RIGGS MD on 03/06/19 1132 Insulin Lispro (Humalog) 100 Unit/1 Ml Insuln.pen, 8 UNITS SQ TIDAC for dm2 for 30 Days, #1 + Sliding scale 1u for every 50mg/dL over 150mg/dL glucose Prescribed by: KATIUSKA RIGGS MD on 03/06/19 1132 Lactobacillus Rhamnosus Gg (Culturelle) 1 Each Cap.sprink, 1 CAP PO BID for Diarrhea for 5 Days, #10 Prescribed by: KATIUSKA RIGGS MD on 03/06/19 1132 Lisinopril (Lisinopril) 10 Mg Tablet, 1 TAB PO DAILY for HTN for 30 Days, #30 Ref 0 Prescribed by: KATIUSKA RIGGS MD on 03/06/191131 Metformin Hcl (Metformin Hcl) 1,000 Mg Tablet, 1,000 MG PO BIDWMEALS for DM II for 30 Days, #60 Prescribed by: KATIUSKA RIGGS MD on 03/06/191131 Olanzapine (Zyprexa) 20 Mg Tablet, 1 TAB PO QHS for SCHIZOPHRENIA for 30 Days, #30 Prescribed by: KATIUSKA RIGGS MD on 03/06/191131 Trazodone Hcl (Trazodone Hcl) 150 Mg Tablet, 1 TAB PO QHS for INSOMNIA for 30 Days, #30 Ref 0 Prescribed by: KATIUSKA RIGGS MD on 03/06/191131 Scheduled PRN Albuterol Sulfate (Proventil Hfa Inhaler) 6.7 Gm Hfa.aer.ad, 1 PUFF IH PRN Q4HRS PRN for FOR ASTHMA for 30 Days, #1 Ref 0 Prescribed by: KATIUSKA RIGGS MD on 03/06/191131 Discontinued Medications Cephalexin (Cephalexin) 250 Mg Capsule, 500 MG PO QID for Cellulitis for 5 Days, #40 Prescribed by: KATIUSKA RIGGS MD on 03/06/191131 KATIUSKA RIGGS MD Apr 03, 2019 14:11
--- NOTE | 2019-04-03 15:27 | NUR ---
Discharge Note: SILVIA KRAMER Discharge instructions and discharge home medications reviewed with Patient and a copy given. All questions have been answered and understanding verbalized. The following instructions and handouts were given: drug abuse and addiction Discontinued lines and drains: peripheral IV. Patient discharged to Home or Self Care with Self via [facility] to cab w/ pass.
[2019-04-04 07:09] LABS: HEMOGLOBIN A1C 12.3 % (4.8-5.6)
== END 2019-04-03 15:31 | disposition home or self-care (01) | DRG 917 ==
LOC: ER 12:19 → ED HOLD 12:30 → 1 WEST ICU 15:29 → 4 NORTH 04-02 19:00
PROVIDERS: ADMIT Internal Medicine; ATTEND Internal Medicine
DX: T43.592A Poisoning by other antipsychotics and neuroleptics, intentional self-harm, initial encounter (principal); G92 Toxic encephalopathy; E10.65 Type 1 diabetes mellitus with hyperglycemia; E83.51 Hypocalcemia; F29 Unspecified psychosis not due to a substance or known physiological condition; F16.159 Hallucinogen abuse with hallucinogen-induced psychotic disorder, unspecified; F32.9 Major depressive disorder, single episode, unspecified; F20.9 Schizophrenia, unspecified; Z79.4 Long term (current) use of insulin; Z82.49 Family history of ischemic heart disease and other diseases of the circulatory system; Z78.1 Physical restraint status
CPT/HCPCS: 36415; 36600; 70450; 71045; 80048; 80076; 80307; 80329; 81001; 82805; 82962; 83036; 83735; 85025; 85610; 85730; 87641; 93005; 96372; 96375; 99292; G0480; J1630; J1815; J2060; J2310; J3486; J3490; J7030; 99291-25; G0378